=== PATIENT | male | born 1960 | race Caucasian/White ===

== ENCOUNTER 2019-10-03 05:23 | Inpatient (IN) ==
--- NOTE | 2019-09-18 08:37 | Anesthesiology Consultation ---
Date of Service September 18, 2019 Assessment & Plan (1) Encounter for pre-operative examination: PCP Clearance 09/19/19: "There are no contraindications to proceeding with L3-4 decompression and fusion with L4-5 hardware removal scheduled for October 02, 2019 other than the Covid 19 pandemic. According to [employer] guidelines patient would be considered to be at low risk... There was an abnormal chest x-ray showing a right lower lung nodule done with preanesthesia testing yesterday. However, CAT scan of chest done this morning shows that that was artifact. There is no lung nodule. There is no evidence of any metastatic disease from renal cell and bladder cancer." Chart Review Chart Review: Acceptable Risk for Surgery and Patient seen in Pre Admission Testing Teaching & Discussion Instructed NPO after midnight before surgery, except medications with 15 cc of water. Medication instructions provided according to the PAT guidelines. History Surgery Operation Date: 10/02/19 12:00 Proposed Procedures p L3-L4 Decompression and Fusion, L4-L5 Hardware Removal, Spinal Cord Monitoring - Latrell Sainz DO Height/Weight Height: 5 ft 6 in Weight: 98.5 kg Allergies Allergy/AdvReac Type Severity Reaction Status Date / Time cyclobenzaprine Allergy Unknown PT NOT SURE Verified 09/19/19 12:57 pravastatin [From Pravachol] AdvReac Unknown MUSCLE Verified 09/19/19 12:57 SORENESS NASAL SPRAY Allergy Unknown Rash Uncoded 09/19/19 12:57 Medications Home Medications Medication Instructions Recorded Confirmed Last Taken multivitamin 1 tab PO DAILY #30 tab 12/23/18 09/19/19 Unknown amlodipine 10 mg PO QAM 09/08/19 09/19/19 Unknown metoprolol succinate 25 mg PO QAM 09/08/19 09/19/19 Unknown Past Medical History Medical History Chronic back pain Elevated hemoglobin A1c 6.5% 06/2019 -- PCP monitoring. Lifestyle modifications for now. History of bladder cancer DX OCTOBER 2018, s/p TURBT 12/17/18 History of kidney cancer DX OCTOBER 2018, s/p partial nephrectomy. Hypertension Scar tissue URETHRA Exercise / Class Metabolic Activity II 4-5 Yardwork/Stairs/Walk up hill Past Family History Family History Mother Brain tumor Brother Skin cancer Past Surgical History Surgical History History of colonoscopy History of cystoscopy MULTIPLE History of kidney surgery R, REMOVAL OF TUMOR - KIDNEY REMAINS History of lumbar fusion History of repair of left rotator cuff History of repair of right rotator cuff History of tonsillectomy and adenoidectomy Hx of transurethral destruction of bladder lesion 12/17/18 TURBT Past Anesthesia History No Hx of Anesthesia Complications and No Family Hx of Anesthesia Complications History of PONV No Hx of PONV and No Hx of Motion Sickness Social History Smoking Status: Never smoker tobacco type: smokeless tobacco Do You Dip or Chew Tobacco: No (HX OF 20+ YRS AGO, NONE CURRENT) Hx Alcohol Use: Yes Alcohol type: beer and wine alcohol intake frequency: other Alcohol Intake Frequency Comment: RARE Hx Substance Use: No substance use type: does not use Review of Systems Pt denies any recent chest pain, shortness of breath, palpitations, cough, fever or URI. Physical Exam Vital Signs BP: 138/90 P: 85bpm SPO2: 98% RA T: 97.9 F R: 16 ENMT Mouth: + dental restorations (Left upper molar implant/crown); no chipped teeth and no loose teeth Thyromental Distance: > or= 3.5 Finger Breadths (3.5) Mallampati Class: I Neck normal visual inspection; neck extension not limited Respiratory normal respiratory effort Auscultation: lungs clear to auscultation bilaterally Cardiovascular Rate/Rhythm: regular rate and regular rhythm Heart Sounds: no murmur Extremities: no edema Testing Laboratory Results 09/18/19 09:16 09/18/19 09:16 PT 10.6 Seconds (9.0-12.0) 09/18/19 09:16 INR 1.0 (0.9-1.1) 09/18/19 09:16 APTT 29.2 Seconds (21.0-31.0) 09/18/19 09:16 Urine Color Yellow 09/18/19 09:16 Urine Appearance Clear (Clear) 09/18/19 09:16 Urine pH 7.5 (4.5-7.5) 09/18/19 09:16 Ur Specific [place] 1.014 (1.000-1.030) 09/18/19 09:16 Urine Protein Negative (Negative) 09/18/19 09:16 Urine Glucose (UA) Negative (Negative) 09/18/19 09:16 Urine Ketones Negative (Negative) 09/18/19 09:16 Urine Nitrite Negative (Negative) 09/18/19 09:16 Ur Leukocyte Esterase Negative (Negative) 09/18/19 09:16 Blood Type O Positive 09/18/19 09:16 Antibody Screen NEGATIVE 09/18/19 09:16 Electrocardiogram Date: 09/18/19 Findings: + NSR @ (84bpm) No significant change from 2011 EKG. Chest X-Ray Date: 09/18/19 IMPRESSION: 1. Apparent 14 mm right lower lung nodule. Further evaluation with chest CT recommended. 2. No acute cardiopulmonary disease. Other Testing Chest CT 09/19/19 1. There is no airspace consolidation or pleural effusion. 2. No pulmonary nodule is identified. The nodular density questioned by x-ray was likely artifactual.
--- NOTE | 2019-09-18 08:50 | PAT Medication Instructions ---
Medication Instructions Date of Service September 18, 2019 Home Medications Medication Instructions Recorded multivitamin 1 tab PO DAILY #30 tab 12/23/18 multivitamin 1 tab PO DAILY amlodipine 10 mg PO QAM metoprolol succinate 25 mg PO QAM DO NOT take the morning of surgery multivitamin 1 tab PO DAILY Take morning of surgery With a small sip of water, OTHERWISE NOTHING TO EAT OR DRINK AFTER MIDNIGHT: amlodipine 10 mg PO QAM metoprolol succinate 25 mg PO QAM Other Notes If you have any questions please call us at [phone] or [phone] or [phone] or [phone]
--- NOTE | 2019-09-18 09:48 | XRay Report ---
XR chest Pre-admission PA/Lat CLINICAL HISTORY: 59 years-old Male presenting with preoperative evaluation. TECHNIQUE: Portable upright AP view of the chest was obtained. COMPARISON: 02/12/2007. FINDINGS: Cardiomediastinal silhouette normal. Apparent 14 mm nodule in the right paramediastinal lower lung, w hich may be in the anteromedial right lower lobe. No other focal opacity. No pleural effusion or pneu mothorax. Osseous structures normal. Upper abdomen normal. IMPRESSION: 1. Apparent 14 mm right lower lung nodule. Further evaluation with chest CT recommended. 2. No acute cardiopulmonary disease. The report will be called/faxed according to standard departmental protocol. ACT 112: Positive. There are findings on this exam that require communication between the performing entity and the patient following Patient Test Result Information Act ([place] Act 112) guidelines. Electronically signed by: David Guillaume M.D. 09/18/2019 9:47 AM
[2019-09-18 09:50] LABS: Basophils # (auto) 0.06 K/uL (0-0.2); Basophils % (auto) 0.6 %; Eosinophils # (auto) 0.32 K/uL (0-0.5); Hematocrit (blood only) 47.7 % (42-52); Hemoglobin 16.8 g/dL (14.0-18.0); Immature Granulocytes # (auto) 0.05 K/uL (0.00-0.02); Immature Granulocytes % (auto) 0.5 %; Lymphocytes # (auto) 2.61 K/uL (1.2-3.4); Lymphocytes % (auto) 24.7 %; Mean Corpuscular Hemoglobin 31.6 pg (25-34); Mean Corpuscular Hgb Conc 35.2 g/dL (32-36); Mean Corpuscular Volume 89.8 fL (80-100); Mean Platelet Volume 10.3 fL (7.4-10.4); Monocytes # (auto) 0.88 K/uL (0.11-0.59); Monocytes % (auto) 8.3 %; Neutrophils # (auto) 6.66 K/uL (1.4-6.5); Neutrophils % (auto) 62.9 %; Platelet Count 269 K/uL (130-400); RDW Coefficient of Variation 12.6 % (11.5-14.5); RDW Standard Deviation 41.1 fL (36.4-46.3); Red Blood Count 5.31 M/uL (4.7-6.1); White Blood Count 10.58 K/uL (4.8-10.8)
[2019-09-18 09:57] LABS: BUN Creatinine Ratio 11.3 (10-20); Creatinine Clr Calc Pharmacy 72.2 ml/min; Est GFR (Non-African American) 66.5; Potassium 4.5 mmol/L (3.5-5.1)
[2019-09-18 09:58] LABS: Appearance Urine Clear (Clear); Bilirubin Urine Negative (Negative); Blood Urine Negative (Negative); Color Urine Yellow; Glucose Urine UA Negative (Negative); Ketones Urine Negative (Negative); Leukocyte Esterase Urine Negative (Negative); Nitrite Urine Negative (Negative); Protein Urine Negative (Negative); Specific Gravity Urine 1.014 (1.000-1.030); Urobilinogen Urine Negative (Negative); pH Urine 7.5 (4.5-7.5)
[2019-09-18 10:03] LABS: Partial Thromboplastin Time 29.2 Seconds (21.0-31.0); Prothrombin Time 10.6 Seconds (9.0-12.0)
--- NOTE | 2019-09-18 15:46 | Electrocardiogram Report ---
Test Reason : Blood Pressure : / mmHG Vent. Rate : 084 BPM Atrial Rate : 084 BPM P-R Int : 144 ms QRS Dur : 088 ms QT Int : 352 ms P-R-T Axes : 069 058 015 degrees QTc Int : 415 ms Normal sinus rhythm Normal ECG When compared with ECG of 07-OCT-2010 15:36, No significant change was found Confirmed by En Carcamo ([id number]) on 09/18/2019 3:46:34 PM Referred By: Latrell Sainz Confirmed By:Oniel Carcamo
--- NOTE | 2019-10-01 14:29 | History & Physical Report ---
Date of Service October 01, 2019 Assessment & Plan (1) Lumbar disc herniation with radiculopathy: At this time the patient has severe neural compression specifically involving the left L3 nerve root. This is obviously accounting for his quadricep weakness and pain patterns. In light of his progressive neurologic deficit and risk for long-term weakness and sequela I related to his spinal pathology I am recommending urgent decompression and fusion at L3-L4. It would require removal of instrumentation at L4-L5. Risk benefits pros cons and alternatives were outlined in detail. Present on Admission?: Yes History of Present Illness Chief Complaint: Back and bilateral leg pain left greater than right. Primary Care Provider: Carlos Hendrickson MD This is a 59-year-old male presents with marked decline in status over the past several weeks with severe pain radiating predominantly in the left buttock and into the anterior thigh. He has limited ambulation secondary to significant weakness involving left lower extremity. He is unable to sleep. He notes his symptoms be progressive. Allergies Allergy/AdvReac Type Severity Reaction Status Date / Time cyclobenzaprine Allergy Unknown PT NOT SURE Verified 09/19/19 12:57 pravastatin [From Pravachol] AdvReac Unknown MUSCLE Verified 09/19/19 12:57 SORENESS NASAL SPRAY Allergy Unknown Rash Uncoded 09/19/19 12:57 Home Medications Home Medications Medication Instructions Recorded Confirmed Type multivitamin 1 tab PO DAILY #30 tab 12/23/18 09/19/19 Rx amlodipine 10 mg PO QAM 09/08/19 09/19/19 History metoprolol succinate 25 mg PO QAM 09/08/19 09/19/19 History Past Med/Surg History Medical History Chronic back pain Elevated hemoglobin A1c 6.5% 06/2019 -- PCP monitoring. Lifestyle modifications for now. History of bladder cancer DX OCTOBER 2018, s/p TURBT 12/17/18 History of kidney cancer DX OCTOBER 2018, s/p partial nephrectomy. Hypertension Scar tissue URETHRA Surgical History History of colonoscopy History of cystoscopy MULTIPLE History of kidney surgery R, REMOVAL OF TUMOR - KIDNEY REMAINS History of lumbar fusion History of repair of left rotator cuff History of repair of right rotator cuff History of tonsillectomy and adenoidectomy Hx of transurethral destruction of bladder lesion 12/17/18 TURBT Family History Mother Brain tumor Brother Skin cancer Social History (Updated 08/07/19 @ 07:47 by Malu Wahl MA) Preferred Language: Somali Communication Ability: Effective Visual Impairment: No Limitations Hearing Ability: Normal Micromatic Hone Operator Required: No Beliefs That Will Affect Care: None marital status: Current Living Situation: Spouse current occupational status: employed 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 Other Information That Helps Us Care for You: No Feels Safe at Home: Yes Smoking Status: Never smoker Tobacco Type: smokeless tobacco ; Do You Dip or Chew Tobacco: No (HX OF 20+ YRS AGO, NONE CURRENT) ; Second Hand Exposure: No ; Hx Alcohol Use: Yes Alcohol type: beer and wine Alcohol Intake Frequency: Rarely Hx Substance Use: No Childhood Exposure to Second-Hand Smoke: Yes Dental Care, Regularly: Yes Physical Activity Frequency: Does not Exercise Physical Activity Frequency Comment: unable to due to health conditions Seatbelt Use: always Physical Exam Physical Exam: On exam the patient is in obvious distress. He can stand ambulate for short distance with assistance. Bench exam reveals reasonable plus out of 5 strength the right quadriceps right dorsiflexion plantarflexion on the left he has a 3+/4 quadricep 5/5 plantar flexion dorsiflexion. There is significant dense sensory deficits to the left thigh compared to the right. Heart is regular rate and rhythm Lungs clear to auscultation Results & Data Diagnostic Findings MRI lumbar spine of the lumbar spine demonstrates evidence of previous instrumented fusion L4-L5. There is degenerative changes L2-3. L3-4 demonstrates broad-based disc herniation with severe bilateral neuroforaminal disease left worse than right. Axillary views demonstrate evidence of severe subarticular and neuroforaminal stenosis at L3-4. He is well decompressed at L4-5. L5-S1 is benign. There is evidence of a far lateral disc herniation occupying the foramen at L3-4 on the left.
[2019-10-03] MEDS ORDERED: CEFAZOLIN 2000MG 2,000 MG/15 ML SYR IV SCH (06:00)
[2019-10-03] MEDS ORDERED: ACETAMINOPHEN 500 MG TAB PO SCH (06:00)
[2019-10-03] MEDS ORDERED: LR 15ML/HR IV SCH (06:00)
[2019-10-03] MEDS ORDERED: GABAPENTIN 600 MG DOSE PO SCH (06:00)
[2019-10-03] MEDS: CeleBREX 200 MG CAP PO SCH (06:02)
[2019-10-03] MEDS ORDERED: HYDROmorphone INJ 1 MG/ML SYRINGE IV PRN ×2 (06:36→11:21)
[2019-10-03] MEDS ORDERED: ONDANSETRON INJ 2 MG/ML 2 ML VIAL IV PRN ×2 (06:36→11:21)
[2019-10-03] MEDS ORDERED: ePHEDrine sulfate 50 MG/ML AMP IV PRN (06:36)
[2019-10-03] MEDS ORDERED: fentaNYL citrate 100 MCG/2 ML VIAL IV PRN (06:36)
[2019-10-03] MEDS ORDERED: ATROPINE SULFATE 0.1 MG/ML 10ML SYR IV PRN (06:36)
[2019-10-03] MEDS ORDERED: DEXAMETHASONE SOD INJ 4 MG/ML VIAL ONE ×2 (06:49→09:31)
[2019-10-03] MEDS ORDERED: NEOSTIGMINE METHYLSULFATE 5 MG/5 ML SYR ONE (06:49)
[2019-10-03] MEDS ORDERED: ONDANSETRON INJ 2 MG/ML 2 ML VIAL ONE ×2 (06:49→09:31)
[2019-10-03] MEDS ORDERED: LIDOCAINE HCL 2% 2 ML VIAL/AMP(20MG/ML) INFIL ONE (06:49)
[2019-10-03] MEDS ORDERED: GLYCOPYRROLATE 0.2 MG/ML VIAL ONE ×2 (06:49→09:31)
[2019-10-03] MEDS ORDERED: PROPOFOL IV EMULSION 10 MG/ML 20 ML VIAL IV ONE (06:49)
[2019-10-03] MEDS ORDERED: fentaNYL citrate 100 MCG/2 ML VIAL ONE (06:49)
[2019-10-03] MEDS ORDERED: MIDAZOLAM HCL 1 MG/ML 2ML VIAL ONE (06:49)
[2019-10-03] MEDS ORDERED: HYDROmorphone INJ 2 MG/ML SYR/VIAL ONE (06:50)
[2019-10-03] MEDS ORDERED: SODIUM CHLORIDE 0.9% INJ 10 ML VIAL ONE (06:50)
[2019-10-03] MEDS ORDERED: SUCCINYLCHOLINE CHLORIDE 20 MG/ML 10 ML VIAL ONE (06:50)
[2019-10-03] MEDS ORDERED: ROCURONIUM BROMIDE 10 MG/ML 5 ML VIAL ONE (06:50)
[2019-10-03] MEDS ORDERED: LIDOCAINE 2% JELLY 5 ML TUBE ONE (06:55)
[2019-10-03] MEDS ORDERED: DexMEDEtomidine HCL IV 100 MCG/ML VIAL ONE (06:55)
[2019-10-03] MEDS ORDERED: ALBUMIN HUMAN 5% 12.5 GM/250 ML VIAL IV ONE (06:55)
[2019-10-03] MEDS ORDERED: BUPIVACAINE/EPINEPHRINE 0.5% MPF 1:200,000 10 ML VIAL ONE (07:00)
[2019-10-03] MEDS ORDERED: BACITRACIN INJ 50,000 UNIT VIAL ONE (07:00)
--- NOTE | 2019-10-03 07:10 | History & Physical Bridge Note ---
Date of Service October 03, 2019 History & Physical Bridge Note I have examined the patient, reviewed the History & Physical and in the interval since the performance of the History & Physical I have noted the following changes of clinical significance: no changes noted
[2019-10-03] MEDS ORDERED: FLOSEAL HEMOSTATIC MATRIX 10ML TOP ONE (08:57)
[2019-10-03] MEDS ORDERED: PHENYLEPHRINE 100MCG/ML 5ML SYR ONE (08:57)
[2019-10-03] MEDS ORDERED: ePHEDrine sulfate 50 MG/ML SYR ONE (08:57)
[2019-10-03] MEDS ORDERED: PHENYLEPHRINE HCL 10 MG/ML VIAL ONE (09:31)
--- NOTE | 2019-10-03 09:59 | Operative Report ---
Post Operative Report Pre & Post Diagnosis Operation Date: 10/03/19 07:15 Pre-Op Diagnosis: Lumbar Disc Herniation and Radiculopathy L3-L4, Previous Fusion L4-L5 Post-Op Diagnosis: Lumbar Disc Herniation and Radiculopathy L3-L4, Previous Fusion L4-L5 I identified the patient and participated in the time-out.: Yes Procedure Operation Date: 10/03/19 07:15 Actual Procedures #1 removal of instrumentation L4-5. #2 exploration of fusion L4-5. #3 lumbar decompression with bilateral medial facetectomies and foraminotomies L2-3, L3-4. #4 posterior spinal fusion L3-4. #5 placement posterior instrumentation L3-4. #6 interbody fusion L3-4. #7 placement peek cage 12 x 26 mm at L3-4. #8 placement locally harvested morselized autograft in the posterior lateral gutters. Benign placement infuse collagen sponge, master graft in the posterior lateral gutters and ostial amp and interbody space. Surgeon Latrell Sainz, DO Carver Hand None Estimated Blood Loss 50 Findings See Below Patient is 5 foot 6 inches tall weighing over 96 kg with a BMI in excess of 34. The patient's body habitus did add significant increased technical difficulty throughout the procedure. This did add at least 40% increase to the operative time. Specimens None Indications Patient presents with severe pain and weakness affecting the left lower extremity. As he was progressing rapidly we recommended urgent decompression fusion. Description of Procedure Patient was met with identified informed consent obtained. Patient was then taken to the operative suite underwent an patient placed in prone position the Jono table on top Wilfrid frame. All bony prominences well-padded eyes inspected to ensure no external pressure placed upon the. This point the lumbar spine was prepped and draped in normal sterile fashion. Sharp dissection with the assistance of Bovie cautery was performed down to and exposing the lamina and transverse processes of L3 and instrumentation at L4 and L5 bilaterally. Then proceeded move the hardware bilaterally unable to remove the left L5 pedicle screw as it was stripped and completely buried in bone. The bone graft was explored noticed to be mature and intact. And then performed a complete laminectomy of L3 partial laminectomy of L2 including bilateral medial facetectomies and foraminotomies. Identified massive disc herniation occupying the entire foramen of 3 4 on the left. It was removed in its entirety removing all compression of the exiting L3 nerve root. Pedicle screws were then placed in L3 and L4 bilaterally with assistance of fluoroscopy the proper sized dipesh placed. The way of a transforaminal portion left the discectomy was performed endplates curetted to subcortical being bone and a 12 x 22 mm peek cage filled osteo-bone graft tapped in position. The rods were then locked in final position bilaterally. The transverse processes of L3 and L4 were burred to subcortical bleeding bone. Infuse collagen sponge master graft local autograft placed in the posterior gutters. 15 round CRISTAL drain inserted. The incision was then closed with 1 Vicryl in the fascia 2-0 Vicryl subcutaneously and 4 Monocryl for final skin closure. Steri-Strips dressings placed. Patient will continue to PACU stable disc. Please note spinal cord monitoring was utilized that the procedure no changes noted. I attest to the content of the Intraoperative Record and any orders documented therein. Any exceptions are noted below.
--- NOTE | 2019-10-03 10:01 | Fluoroscopy Report ---
FL lumbar spine 2-3V CLINICAL HISTORY: L3-L4 DECOMPRESSION AND FUSION COMPARISON STUDY: 2010 FLUOROSCOPY TIME: 7 seconds. NUMBER OF FLUOROSCOPIC IMAGES: 2 FINDINGS: 2 intraoperative fluoroscopic spot images are provided for interpretation. Again evident ar e postsurgical changes of a discectomy and interbody fusion at the L4-5 level. The right L5 pedicle s crew has been removed in the interim. The L4-5 spinal rods have been removed. There is now evidence for an L3-4 discectomy, interbody fusion, and posterior spinal fusion with pedi dafne screw and dipesh fixation. IMPRESSION: Intraoperative fluoroscopic spot images demonstrating postsurgical changes as described above. ACT 112: Negative or not required by law. Electronically signed by: Mart Can M.D. 10/03/2019 10:00 AM
--- NOTE | 2019-10-03 10:53 | Anesthesiology Progress Note ---
Date of Service October 03, 2019 Anesthesia Post Procedure Vital Signs Vital Signs: Temp Pulse Pulse Resp BP Pulse Ox 10/03/19 10:50 86 16 133/69 99 10/03/19 10:40 100 H 16 141/74 H 99 10/03/19 10:30 112 H 16 138/80 99 10/03/19 10:22 36.4 C L 93 H 16 139/86 94 10/03/19 05:48 36.8 C 88 18 176/86 H 98 Transfer of Care Handoff Completed per policy Notes Mental Status: alert / awake / arousable and participated in evaluation Patient Amnestic to Procedure: Yes Nausea / Vomiting: adequately controlled Pain: adequately controlled Airway Patency, RR, SpO2: stable & adequate BP & HR: stable & adequate Hydration State: stable & adequate Anesthetic Complications: no major complications apparent and Pt Satisfied with anesthetic care
[2019-10-03] MEDS ORDERED: METOCLOPRAMIDE HCL INJ 5 MG/ML 2 ML VIAL IV PRN (11:21)
[2019-10-03] MEDS ORDERED: DO NOT ADMINISTER FLU VACCINE PRN (11:21)
[2019-10-03] MEDS ORDERED: MAGNESIUM HYDROXIDE SUSP 30 ML UDC PO PRN (11:21)
[2019-10-03] MEDS ORDERED: LORazepam 0.5 MG TAB PO PRN (11:21)
[2019-10-03] MEDS ORDERED: ACETAMINOPHEN 500 MG TAB PO PRN (11:21)
[2019-10-03] MEDS ORDERED: SOD PHOSPHATE/SOD BIPHOSPHATE ENEMA 132 ML BTL PR PRN (11:21)
[2019-10-03] MEDS ORDERED: FAMOTIDINE 20 MG TAB PO PRN (11:21)
[2019-10-03] MEDS ORDERED: OXYCODONE HCL IR 5 MG TAB (IMMEDIATE RELEASE) PO PRN (11:21)
[2019-10-03] MEDS ORDERED: LORazepam 0.5 MG/1 ML VIAL IV PRN (11:21)
[2019-10-03] MEDS ORDERED: ONDANSETRON 4 MG OD TAB PO PRN (11:21)
[2019-10-03] MEDS ORDERED: ALUMINUM/MAGNESIUM SUSP 30 ML UDC PO PRN (11:21)
[2019-10-03] MEDS ORDERED: DO NOT ADMINISTER PNEUMOCOCCAL VACCINE PRN (11:21)
[2019-10-03] MEDS ORDERED: HYDROmorphone INJ 0.5 MG/0.5 ML SYR IV PRN (11:21)
[2019-10-03] MEDS ORDERED: TRAMADOL HCL 50 MG TABLET PO PRN (11:21)
[2019-10-03] MEDS ORDERED: PROMETHAZINE HCL 12.5 MG in SODIUM CHLORIDE 0.9% 50 ML IV PRN (11:21)
[2019-10-03] MEDS ORDERED: NALOXONE HCL 0.4 MG/1 ML VIAL/CARP IV PRN (11:21)
[2019-10-03] MEDS ORDERED: ACETAMINOPHEN 1,000 MG/100 ML VIAL IV PRN (11:21)
[2019-10-03] MEDS ORDERED: bisacodyL 10 MG SUPP PR PRN (11:21)
[2019-10-03] MEDS: LACTATED RINGER'S 1,000 ML IV SCH ×2 (11:46→16:08)
[2019-10-03] MEDS: KETOROLAC 30 MG/ML VIAL IV SCH ×3 (12:15→23:49)
[2019-10-03] MEDS: CEFAZOLIN 2000MG 2,000 MG/15 ML SYR IV SCH ×2 (14:02→22:50)
[2019-10-03] MEDS: DOCUSATE SODIUM/SENNA 50/8.6MG TAB PO SCH (20:35)
[2019-10-03] MEDS ORDERED: COUGH DROP (SUGAR FREE) LOZ 24 LOZ/1 BOX BUCCAL ONE (23:52)
[2019-10-04] MEDS: LACTATED RINGER'S 1,000 ML IV SCH (01:12)
[2019-10-04 05:09] LABS: Basophils # (auto) 0.01 K/uL (0-0.2); Basophils % (auto) 0.1 %; Hematocrit (blood only) 39.7 % (42-52); Hemoglobin 13.8 g/dL (14.0-18.0); Immature Granulocytes # (auto) 0.06 K/uL (0.00-0.02); Immature Granulocytes % (auto) 0.3 %; Lymphocytes # (auto) 1.24 K/uL (1.2-3.4); Lymphocytes % (auto) 7.2 %; Mean Corpuscular Hemoglobin 31.3 pg (25-34); Mean Corpuscular Hgb Conc 34.8 g/dL (32-36); Mean Platelet Volume 9.9 fL (7.4-10.4); Monocytes # (auto) 1.16 K/uL (0.11-0.59); Monocytes % (auto) 6.8 %; Neutrophils # (auto) 14.69 K/uL (1.4-6.5); Neutrophils % (auto) 85.6 %; Platelet Count 253 K/uL (130-400); RDW Coefficient of Variation 12.7 % (11.5-14.5); RDW Standard Deviation 41.9 fL (36.4-46.3); Red Blood Count 4.41 M/uL (4.7-6.1); White Blood Count 17.16 K/uL (4.8-10.8)
[2019-10-04] MEDS: CeleBREX 200 MG CAP PO SCH (05:16)
[2019-10-04] MEDS: POLYETHYLENE (MIRALAX) 17 GM PACK PO SCH ×4 (05:17→23:22)
[2019-10-04] MEDS: KETOROLAC 30 MG/ML VIAL IV SCH (05:31)
[2019-10-04 05:34] LABS: BUN Creatinine Ratio 13.4 (10-20); Calcium 9.2 mg/dl (8.5-10.1); Creatinine Clr Calc Pharmacy 74.6 ml/min; Est GFR (African American) 79.4; Est GFR (Non-African American) 68.5; Potassium 4.2 mmol/L (3.5-5.1)
[2019-10-04] MEDS: MULTIVITAMIN TAB PO SCH (08:16)
[2019-10-04] MEDS: AMLODIPINE BESYLATE 5 MG TAB PO SCH (08:16)
[2019-10-04] MEDS: METOPROLOL SUCC 25MG EXT REL TAB PO SCH (08:16)
--- NOTE | 2019-10-04 10:28 | Orthopedic Progress Note ---
Date of Service October 04, 2019 Assessment & Plan (1) Lumbar disc herniation with radiculopathy: This time we will continue physical therapy monitor his CRISTAL output hopefully discharge home tomorrow. Present on Admission?: Yes Admission and Anticipated Discharge Date Admission Date: October 03, 2019 Subjective Back pain controlled left leg pain markedly improved. He states his strength and numbness is remarkably improved. Physical Exam Physical Exam: On exam is excellent strength testing appears comfortable. Results & Data ([facility]) Vital Signs (Past 12 Hours) Vital Signs Temp Pulse Resp BP Pulse Ox 10/04/19 07:37 36.6 C 78 16 152/77 H 96 10/04/19 03:21 36.4 C L 89 16 134/77 97 10/03/19 23:10 36.4 C L 79 16 127/65 97
[2019-10-04] MEDS: DOCUSATE SODIUM/SENNA 50/8.6MG TAB PO SCH (20:50)
[2019-10-05] MEDS: POLYETHYLENE (MIRALAX) 17 GM PACK PO SCH (06:36)
[2019-10-05] MEDS: METOPROLOL SUCC 25MG EXT REL TAB PO SCH (08:25)
[2019-10-05] MEDS: MULTIVITAMIN TAB PO SCH (08:25)
[2019-10-05] MEDS: AMLODIPINE BESYLATE 5 MG TAB PO SCH (08:26)
[2019-10-05] MEDS ORDERED: DEXAMETHASONE SOD PHOSPHATE 8 MG in SYRINGE 0 ML IV SCH (09:00)
[2019-10-05] MEDS ORDERED: Nursing to Pharmacy Communication ONE (10:17)
--- NOTE | 2019-10-05 10:46 | Anesthesiology Progress Note ---
Date of Service October 05, 2019 Anesthesia Post Procedure Vital Signs Vital Signs: Temp Pulse Resp BP Pulse Ox 10/05/19 07:32 36.8 C 82 16 140/92 97 10/04/19 23:12 36.4 C L 58 L 16 129/79 98 10/04/19 15:23 36.6 C 87 18 160/77 H 96 Notes Mental Status: alert / awake / arousable and participated in evaluation Nausea / Vomiting: adequately controlled Pain: adequately controlled Airway Patency, RR, SpO2: stable & adequate BP & HR: stable & adequate Hydration State: stable & adequate
--- NOTE | 2019-10-05 11:45 | Discharge Summary ---
Date of Service October 05, 2019 Admission HPI Per Admitting Provider This is a 59-year-old male presents with marked decline in status over the past several weeks with severe pain radiating predominantly in the left buttock and into the anterior thigh. He has limited ambulation secondary to significant weakness involving left lower extremity. He is unable to sleep. He notes his symptoms be progressive. Principal Diagnosis Lumbar spinal stenosis with radiculopathy Discharge Data Allergies Allergy/AdvReac Type Severity Reaction Status Date / Time cyclobenzaprine Allergy Unknown PT NOT SURE Verified 10/03/19 05:44 apple Allergy Swelling Verified 10/03/19 05:45 of Lip/Tongue/Throat branch Allergy Swelling Verified 10/03/19 05:45 of the Eye plum Allergy Swelling Verified 10/03/19 05:46 of Lip/Tongue/Throat walnut Allergy Swelling Verified 10/03/19 05:45 of Lip/Tongue/Throat pravastatin [From Pravachol] AdvReac Unknown MUSCLE Verified 10/03/19 05:44 SORENESS NASAL SPRAY Allergy Unknown Rash Uncoded 10/03/19 05:44 Consultations 10/03/19 11:21 Consult Case Management - Discharge Planning Routine Procedures Performed Operation Date: 10/03/19 07:15 Actual Procedures p L3-L4 Decompression and Instrumented Fusion, with Application of Bone Morphogenetic Protein and Application of Osteoamp Allograft, Interbody Fusion; L4-L5 Hardware Removal, Spinal Cord Monitoring(Not Applicable) - Latrell Sainz DO Ordered Studies 10/03/19 07:00 FL fluoroscopy <1hr Routine FL lumbar spine 2-3V Routine Hospital Course (1) Lumbar disc herniation with radiculopathy: Patient went lumbar decompression fusion tolerated this well state of orthopedic for postoperative. Postop day 1 he had marked resolution of his leg pain and improvement of his leg weakness. He ambulated the halls well. He progressed to postop day #2. CRISTAL drain decreasing probably. Excellent strength testing. Subsequently discharged home. Discharge orders instructions from the chart for further review. Total Time Total Time Spent Total Time Spent (In Minutes): 20 minutes Discharge Plan Discharge Items Patient Disposition: Home - Self-Care Reason For Visit: Radiculopathy, Lumbar Region Discharge Diagnosis: Lumbar spinal stenosis with disc herniation and radiculopathy Activity: As commented below Non-emergency contact: Primary Care Provider Call non-emergency contact if: you have any medication questions Follow-up/Referrals: Hendrickson,Carlos, MD [Primary Care Provider] - Diet: Regular Addtl Attending Provider Instructions: ACTIVITY RECOMMENDATIONS: SELF CARE INSTRUCTIONS AFTER THORACIC/LUMBAR FUSIONS 1. You may walk to your tolerance. It is good exercise for your legs and back. Expect some back and intermittent leg aches and pains. 2. You may perform "counter-top" level activities (make a sandwich, tam with a project, etc.). 3. No bending or lifting of more than 10 pounds or back twisting of any nature (roll like a log when turning in bed). 4. You may ride in a car for 20-30 minutes at a time. No driving until after your first visit with your doctor. 5. Frequent changes of position and restricting sitting to 30 minutes at a time will help limit the amount of back spasms and stiffness you may experience. 6. You may discontinue the use of ambulatory aids (cane, crutches, etc.) once your strength and confidence allow. 7. You may xerox machine operator the shower and let water strike your incision when you arrive home at least once daily. Do not take a tub bath, sit in a hot tub or go into a swimming pool until after your first recheck in the office. SPECIAL CARE INSTRUCTIONS: VERY IMPORTANT TO READ AND REVIEW A. Your surgical incision has been closed with a cosmetic suture under the skin that will dissolve in about 6 weeks. In 14 days, you can use a pair of clean scissors and cut the suture that is left outside of the skin at the ends of your incision. 1. The small skin tapes can be removed 7 days after surgery if they have not fallen off by that point. 2. You may keep the wound open to air as much as possible to promote healing after post-op day number 5 unless told otherwise by your doctor. 3. If you think the wound looks like it is becoming infected (redness or worsening drainage) and/or you are experiencing fever, chill or worsening back pain and muscle spasms, contact the office so that we may evaluate you as soon as possible. B. Complications are uncommon, but please contact us if you have any signs or symptoms of: 1. wound infection (fever higher than 102.5 degrees F, redness, separation of wound, drainage, or increasing pain from the incision) 2. blood clots in legs (pain, swelling, redness and warmth in legs) 3. urinary tract infection (fever higher than 102.5 degrees F, burning upon urination or increased frequency of urination) 4. nerve problems (inability to walk on your toes or heels, numbness, loss of bowel or bladder control) 5. any other symptoms that concern you C. Please call the office at if you have any concerns or questions about your operation or recovery. D. No smoking! Smoking drastically decreases the chance of a solid fusion. E. Do not take any anti-inflammatory medications (Indocin, Advil, Motrin, Aspirin, Naprosyn, etc.) as these may inhibit the chance of a solid fusion. Tylenol is okay to take for pain. MANAGING PAIN AFTER SPINAL SURGERY 1. Narcotic medication is intended for short-term use and will be provided for surgical pain. Surgical pain usually lasts for a period of 4-6 weeks. Narcotic medication includes Percocet, Vicodin, Darvocet, Tylenol #3 or Lortab. 2. Longer-term pain is more appropriately treated with non-narcotic medication such as Tylenol ES. 3. Muscle spasm is not appropriately treated with narcotics. Muscle relaxers such as Soma, Flexeril or Skelaxin can be used along with Tylenol ES. 4. Remember that we all live with some "aches and pains". This is not unusual or uncommon after an injury or as we get older. a. Back pain is expected and may include muscle spasms for 4 to 6 weeks after surgery. The pain should gradually improve. If the pain worsens for no apparent reason, please contact the office. b. Intermittent leg pain may also be experienced and should not be concerned about unless it worsens for no apparent reason. If so, please contact the office. 5. We will provide appropriate medication within the normal guidelines of their prescribed use. We will also be very cautious and aware of potential abuse and extended duration of patients' medication needs. a. Pain medications are for your comfort and to assist with sleep and rest so that the tissue can heal. They are not provided in order to return to normal activity and should not be used through the day. To do so or worsening pain at night can result from ongoing tissue damage and development of tolerance to the prescribed medicine. 6. Please allow 2-3 days to process refills. Prescriptions will not be mailed but must be picked up at the office. FOLLOW UP VISIT: Keep your scheduled follow-up appointment. Any questions, please call the office at . Pending Studies at Discharge: No Stand-Alone Forms: [facility], Smoking Cessation Medications and DC Order Prescriptions: New tramadol 50 mg tablet 50 mg PO Q6H PRN (Reason: pain, moderate) Qty: 20 RF: 0 oxycodone 5 mg tablet 5 mg PO Q6H PRN (Reason: pain, severe) Qty: 20 RF: 0 Continued multivitamin [Daily Multi-Vitamin] tablet 1 tab PO DAILY Qty: 30 RF: 0 amlodipine 10 mg tablet 10 mg PO QAM RF: 0 metoprolol succinate 25 mg tablet extended release 24 hr 25 mg PO QAM RF: 0 Discharge Orders: Discharge Order (Routine); Ordered 10/05/19 Ordered By: Latrell Sainz Admission Data Admit Date/Time: 10/03/19 10:36 Attending Provider: Latrell Sainz Admit Provider: Latrell Sainz Primary Care Provider: Carlos Hendrickson
== END 2019-10-05 13:01 | disposition home or self-care (01) | DRG 455 ==
LOC: ASU 05:23 → 3E 10:36

== ENCOUNTER 2019-10-24 17:45 | Inpatient (IN) ==
--- NOTE | 2019-10-24 18:52 | Emergency Department Note ---
History of Present Illness General Chief complaint: Infection, Wound Stated complaint: infection, DrJacinta Refered Time Seen by Provider: 10/24/19 17:58 History of Present Illness Provider complaint: Postoperative complication. Onset (ago): day(s) 2 Location: back Radiation: back Associated symptoms: no fever/chills and no malaise 59-year-old male presents emergency department for postoperative complication. Patient states that he has been having purulent discharge coming from the wound that Dr. Sainz made status post operation on October 02. He states that he noticed there is purulent discharge coming from the wound since Sunday, 2 days ago. He states at first it was scant however yesterday it began having severe "pus" coming from the wound. He denies any fever, urinary continence, urinary retention, or numbness. He states he called Dr. Sainz's office who prescribed him Keflex yesterday. He stated the discharge was significantly more today than yesterday and when he called Dr. Sainz's office today they referred him to the emergency department. Home Medications Home Medications Medication Instructions Recorded Confirmed Type multivitamin 1 tab PO DAILY #30 tab 12/23/18 10/24/19 Rx amlodipine 10 mg PO QAM 09/08/19 10/24/19 History metoprolol succinate 25 mg PO QAM 09/08/19 10/24/19 History oxycodone 5 mg PO Q6H PRN #20 tab 10/04/19 10/24/19 Rx tramadol 50 mg PO Q6H PRN #20 tab 10/04/19 10/24/19 Rx Allergies Allergy/AdvReac Type Severity Reaction Status Date / Time cyclobenzaprine Allergy Unknown PT NOT SURE Verified 10/24/19 20:10 apple Allergy Swelling Verified 10/24/19 20:10 of Lip/Tongue/Throat branch Allergy Swelling Verified 10/24/19 20:10 of the Eye plum Allergy Swelling Verified 10/24/19 20:10 of Lip/Tongue/Throat walnut Allergy Swelling Verified 10/24/19 20:10 of Lip/Tongue/Throat pravastatin [From Pravachol] AdvReac Unknown MUSCLE Verified 10/24/19 20:10 SORENESS NASAL SPRAY Allergy Unknown Rash Uncoded 10/24/19 20:10 Past Med/Surg History Medical History Chronic back pain Elevated hemoglobin A1c 6.5% 06/2019 -- PCP monitoring. Lifestyle modifications for now. History of bladder cancer DX OCTOBER 2018, s/p TURBT 12/17/18 History of kidney cancer DX OCTOBER 2018, s/p partial nephrectomy. Hypertension Scar tissue URETHRA Surgical History History of colonoscopy History of cystoscopy MULTIPLE History of kidney surgery R, REMOVAL OF TUMOR - KIDNEY REMAINS History of lumbar fusion History of repair of left rotator cuff History of repair of right rotator cuff History of tonsillectomy and adenoidectomy Hx of transurethral destruction of bladder lesion 12/17/18 TURBT Family History Mother Brain tumor Brother Skin cancer Social History Preferred Language: Czech Communication Ability: Effective Visual Impairment: No Limitations Hearing Ability: Normal Sales Development Director Required: No Beliefs That Will Affect Care: None marital status: Current Living Situation: Spouse current occupational status: employed 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 Feels Safe at Home: Yes Smoking Status: Never smoker Tobacco Type: smokeless tobacco ; Second Hand Exposure: No ; Hx Alcohol Use: Yes Alcohol type: beer and wine Alcohol Intake Frequency: Rarely Hx Substance Use: No Childhood Exposure to Second-Hand Smoke: Yes Dental Care, Regularly: Yes Physical Activity Frequency: Does not Exercise Physical Activity Frequency Comment: unable to due to health conditions Seatbelt Use: always Review of Systems A total of 10 systems reviewed and were otherwise negative Physical Exam Vital Signs Vital Signs - 24 hr 10/24/19 17:48 10/24/19 21:00 Temperature 36.8 C Temperature Source Oral Pulse Rate 97 H Pulse Rate [Finger] 78 Pulse Rhythm Regular Pulse Strength Normal Respiratory Rate 19 Blood Pressure 161/87 H Blood Pressure [Right Arm] 155/90 H Blood Pressure Mean 111 Blood Pressure Mean [Right Arm] 111 Blood Pressure Position Sitting Pulse Oximetry 92 97 Oxygen Delivery Method Room Air Sepsis Recent Fever Within 48 Hours No Sepsis Action Taken by Nursing No Action Required Physical Exam GENERAL: He is oriented to person, place, and time. He appears well-developed and well-nourished. He does not appear distressed. HENT: Exam performed. - Head: Normocephalic and atraumatic. - Right Ear: External ear normal. No mastoid tenderness. - Left Ear: External ear normal. No mastoid tenderness. - Mouth/Throat: The oropharynx is clear and moist. No trismus in the jaw. No dental abscesses or uvula swelling. No oropharyngeal exudate or tonsillar abscesses. EYES: Conjunctivae and EOM are normal. Pupils are equal, round, and reactive to light. Right eye exhibits no discharge. Left eye exhibits no discharge. No scleral icterus. NECK: Normal range of motion. Neck supple. No JVD present. No spinous process tenderness present. No carotid bruit present. No rigidity. No tracheal deviation and normal range of motion present. No Brudzinski's sign and no Kernig's sign noted. CV: Normal rate, regular rhythm, normal heart sounds and intact distal pulses. There is no peripheral edema. Palpable radial pulses bue. PULM/CHEST: Effort normal and breath sounds normal. No respiratory distress. No stridor. He has no wheezes. He has no rales. - Chest Wall: He exhibits no tenderness. ABD: The abdomen is soft. Bowel sounds are normal. He has no distension. No mass is present. There is no tenderness. There is no rebound, no guarding, no Harris's sign and no tenderness at McBurney's point. Rovsig negative. MUSC/SKEL: Normal range of motion. There is no peripheral edema, tenderness or deformity. LYMPH: No cervical adenopathy. NEURO: He is alert and oriented to person, place, and time. He has normal strength. No cranial nerve deficit or sensory deficit. Coordination and gait normal. GCS eye subscore is 4. GCS verbal subscore is 5. GCS motor subscore is 6. Cerebellar tests wnl. SKIN: Postoperative wound over his lumbar spine. Mild surrounding erythema. Purulent discharge is able to be easily expressed. No fluctuance. Nikolsky negative. PSYCH: He has a normal mood and affect. Behavior is normal. Judgment and thought content normal. Course Course 1804: The patient was evaluated in room C9. A complete history and physical exam was performed. 2041: Vital signs stable. Labs show a leukocytosis of 10.92, ESR of 42 and CRP of 1.27. MRI was concerning for possible infectious osteomyelitis versus postsurgical changes. I discussed the patient's symptoms with his surgeon Dr. Sainz and read him the report of the MRI verbatim. Both Dr. Sainz and I agree that the patient should be admitted to the hospital and receive IV antibiotics. Dr. Sainz states he can evaluate the patient in the hospital tomorrow for need for further surgical procedure or antibiotic bead placement. Dr. Sainz is in agreement that the patient should be treated with IV antibiotics, he is in agreement that vancomycin is appropriate in this patient's clinical setting. Dr. Sainz asked the patient to be admitted to the hospital service. [facility] hospitalist Dr. Montague made aware of the patient. Administered Medications Gadobutrol (Gadavist 30ml) 9.5 ml IV ONCE PRN PRN Reason: Interaction Checking Stop: 10/28/19 19:52 Last Admin: 10/24/19 19:53 Dose: 9.5 ml Documented by: [id number] Vancomycin HCl 2,000 mg/ (Sodium Chloride) 540 mls @ 200 mls/hr IV NOW ONE Stop: 10/24/19 23:18 Last Admin: 10/24/19 21:01 Dose: 200 mls/hr Documented by: [id number] Medical Decision Making Laboratory Data Result diagrams: 10/24/19 18:45 10/24/19 18:45 Lab Results 10/24/19 10/24/19 10/24/19 Range/Units 18:45 18:45 18:45 WBC 10.92 H (4.8-10.8) K/uL RBC 4.17 L (4.7-6.1) M/uL Hgb 13.2 L (14.0-18.0) g/dL Hct 37.6 L (42-52) % MCV 90.2 (80-100) fL MCH 31.7 (25-34) pg MCHC 35.1 (32-36) g/dL RDW Std Deviation 41.3 (36.4-46.3) fL RDW Coeff of Kalin 12.8 (11.5-14.5) % Plt Count 341 (130-400) K/uL MPV 9.5 (7.4-10.4) fL Immature Gran % (Auto) 0.5 % Neut % (Auto) 61.2 % Lymph % (Auto) 25.1 % [place] % (Auto) 7.9 % Eos % (Auto) 4.5 % Baso % (Auto) 0.8 % Immature Gran # (Auto) 0.05 H (0.00-0.02) K/uL Neut # (Auto) 6.69 H (1.4-6.5) K/uL Lymph # (Auto) 2.74 (1.2-3.4) K/uL [place] # (Auto) 0.86 H (0.11-0.59) K/uL Eos # (Auto) 0.49 (0-0.5) K/uL Baso # (Auto) 0.09 (0-0.2) K/uL ESR 42 H (0-14) mm/hr Sodium 135 L (136-145) mmol/L Potassium (3.5-5.1) mmol/L Chloride 104 (98-107) mmol/L Carbon Dioxide 24 (21-32) mmol/L Anion Gap 6.0 (3-11) BUN 14 (7-18) mg/dl Creatinine 1.08 (0.6-1.4) mg/dl Est Cr Clr Drug Dosing 80.5 ml/min Est GFR ( Amer) 86.6 Est GFR (Non-Af Amer) 74.7 BUN/Creatinine Ratio 12.5 (10-20) Glucose 94 (70-99) mg/dl Lactate (0.4-2.0) mmol/L Calcium 8.9 (8.5-10.1) mg/dl C-Reactive Protein 1.27 H (0-0.29) mg/dl 10/24/19 Range/Units 18:45 WBC (4.8-10.8) K/uL RBC (4.7-6.1) M/uL Hgb (14.0-18.0) g/dL Hct (42-52) % MCV (80-100) fL MCH (25-34) pg MCHC (32-36) g/dL RDW Std Deviation (36.4-46.3) fL RDW Coeff of Kalin (11.5-14.5) % Plt Count (130-400) K/uL MPV (7.4-10.4) fL Immature Gran % (Auto) % Neut % (Auto) % Lymph % (Auto) % [place] % (Auto) % Eos % (Auto) % Baso % (Auto) % Immature Gran # (Auto) (0.00-0.02) K/uL Neut # (Auto) (1.4-6.5) K/uL Lymph # (Auto) (1.2-3.4) K/uL [place] # (Auto) (0.11-0.59) K/uL Eos # (Auto) (0-0.5) K/uL Baso # (Auto) (0-0.2) K/uL ESR (0-14) mm/hr Sodium (136-145) mmol/L Potassium (3.5-5.1) mmol/L Chloride (98-107) mmol/L Carbon Dioxide (21-32) mmol/L Anion Gap (3-11) BUN (7-18) mg/dl Creatinine (0.6-1.4) mg/dl Est Cr Clr Drug Dosing ml/min Est GFR ( Amer) Est GFR (Non-Af Amer) BUN/Creatinine Ratio (10-20) Glucose (70-99) mg/dl Lactate 0.9 (0.4-2.0) mmol/L Calcium (8.5-10.1) mg/dl C-Reactive Protein (0-0.29) mg/dl Imaging Data Radiologist's Impression: MRI OF THE LUMBAR SPINE WITH AND WITHOUT CONTRAST CLINICAL HISTORY: Evaluate for postoperative abscess. COMPARISON STUDY: Lumbar spine fluoroscopic images October 03, 2019. TECHNIQUE: Utilizing a 1.5 Amberly magnet and dedicated coil, multiplanar, multiecho imaging of the lumbar spine was performed before and after uneventful IV administration of 9.5 mL of Gadavist. FINDINGS: For purposes of numbering on this exam, the L5-S1 disc space is assigned to axial image 28 of 30. A previous L4-L5 discectomy is noted. A left L5 pedicle screw remains in place. A recent L3-L4 discectomy, posterior decompression and bilateral pedicle screw fusion is noted. There is increased T2 signal and decreased T1 signal along the inferior endplate of L3 and superior endplate of L4. Interbody spacer is present. Note is made of a rim-enhancing left laminectomy bed fluid collection that extends into the left aspect of the canal and toward the interbody spacer at the L3-L4 level that measures 2.9 x 1.9 x 1.4 cm. This has mild mass effect upon the left posterolateral aspect of the thecal sac. An additional fluid collection within the deep subcutaneous tissues within the operative bed measures 4.9 x 1.3 x 1.2 cm. This also demonstrates peripheral enhancement. Note is made of edema and enhancement within the paraspinal musculature within the operative bed. The conus terminates at the L1 level. Several mildly enhancing nerve roots are noted within the lumbar spine. No additional fluid collections are noted. There are several Schmorl's nodes within the lower thoracic and lumbar spine. No lumbar spine fracture is present. IMPRESSION: 1. Status post recent L3-L4 discectomy with interbody spacer placement, posterior decompression and bilateral pedicle screw fusion. Endplate edema and enhancement centered at the L3-L4 level. This finding is nonspecific in the early postoperative setting and may reflect postsurgical change. However, an infectious process with osteomyelitis could appear similar. 2. 2.9 x 1.9 x 1.4 cm left laminectomy bed fluid collection at the L3-L4 level that extends into the left aspect of the canal and the disc space with mild mass effect upon the thecal sac. This is also nonspecific in the early postoperative setting and could reflect a sterile postoperative collection. However, an abscess cannot be excluded by MRI. Additional 4.9 x 1.3 x 1.2 cm deep subc utaneous fluid collection and nonspecific edema and enhancement within the paraspinal musculature of the operative bed. ACT 112: Negative or not required by law. Electronically signed by: Jules Gabriel M.D. 10/24/2019 8:24 PM Dictated: 10/24/191958 Transcribed: 10/24/191958 [facility] Narrative Vital signs stable. Labs show a leukocytosis of 10.92, ESR of 42 and CRP of 1.27. MRI was concerning for possible infectious osteomyelitis versus postsurgical changes. I discussed the patient's symptoms with his surgeon Dr. Sainz and read him the report of the MRI verbatim. Both Dr. Sainz and I agree that the patient should be admitted to the hospital and receive IV antibiotics. Dr. Sainz states he can evaluate the patient in the hospital tomorrow for need for further surgical procedure or antibiotic bead placement. Dr. Sainz is in agreement that the patient should be treated with IV antibiotics, he is in agreement that vancomycin is appropriate in this patient's clinical setting. Dr. Sainz asked the patient to be admitted to the hospital service. [facility] hospitalist Dr. Montague made aware of the patient. Impression & Plan Complication, postoperative infection Discharge Plan Visit Data Chief Complaint: Infection, Wound Stated Complaint: infection, Dr. Refered ED Provider: Jerson Landry Discharge Problem: Complication, postoperative infection Patient Disposition: Being Evaluated by Hospitalist Forms Stand Alone Forms: [facility], Important Visit Information Prescriptions Prescriptions: No Action multivitamin [Daily Multi-Vitamin] tablet 1 tab PO DAILY Qty: 30 RF: 0 amlodipine 10 mg tablet 10 mg PO QAM RF: 0 metoprolol succinate 25 mg tablet extended release 24 hr 25 mg PO QAM RF: 0 tramadol 50 mg tablet 50 mg PO Q6H PRN (Reason: pain, moderate) Qty: 20 RF: 0 oxycodone 5 mg tablet 5 mg PO Q6H PRN (Reason: pain, severe) Qty: 20 RF: 0 Referrals Referrals: Carlos Hendrickson MD [Primary Care Provider] - Discharge Problem: Complication, postoperative infection Qualifiers: Encounter type: initial encounter Postoperative infection type: unspecified ty pe Qualified Code(s): T81.40XA - Infection following a procedure, unspecified, initial encounter
[2019-10-24 19:02] LABS: Basophils # (auto) 0.09 K/uL (0-0.2); Basophils % (auto) 0.8 %; Eosinophils # (auto) 0.49 K/uL (0-0.5); Eosinophils % (auto) 4.5 %; Hematocrit (blood only) 37.6 % (42-52); Hemoglobin 13.2 g/dL (14.0-18.0); Immature Granulocytes # (auto) 0.05 K/uL (0.00-0.02); Immature Granulocytes % (auto) 0.5 %; Lymphocytes # (auto) 2.74 K/uL (1.2-3.4); Lymphocytes % (auto) 25.1 %; Mean Corpuscular Hemoglobin 31.7 pg (25-34); Mean Corpuscular Hgb Conc 35.1 g/dL (32-36); Mean Corpuscular Volume 90.2 fL (80-100); Mean Platelet Volume 9.5 fL (7.4-10.4); Monocytes # (auto) 0.86 K/uL (0.11-0.59); Monocytes % (auto) 7.9 %; Neutrophils # (auto) 6.69 K/uL (1.4-6.5); Neutrophils % (auto) 61.2 %; Platelet Count 341 K/uL (130-400); RDW Coefficient of Variation 12.8 % (11.5-14.5); RDW Standard Deviation 41.3 fL (36.4-46.3); Red Blood Count 4.17 M/uL (4.7-6.1); White Blood Count 10.92 K/uL (4.8-10.8)
[2019-10-24 19:34] LABS: BUN Creatinine Ratio 12.5 (10-20); C Reactive Protein 1.27 mg/dl (0-0.29); Calcium 8.9 mg/dl (8.5-10.1); Creatinine Clr Calc Pharmacy 80.5 ml/min; Est GFR (African American) 86.6; Est GFR (Non-African American) 74.7
[2019-10-24] MEDS ORDERED: GADOBUTROL 30ML VIAL IV PRN (19:53)
--- NOTE | 2019-10-24 20:26 | Magnetic Resonance Report ---
MRI OF THE LUMBAR SPINE WITH AND WITHOUT CONTRAST CLINICAL HISTORY: Evaluate for postoperative abscess. COMPARISON STUDY: Lumbar spine fluoroscopic images October 03, 2019. TECHNIQUE: Utilizing a 1.5 Amberly magnet and dedicated coil, multiplanar, [facility] before and after uneventful IV administration of 9.5 mL of Gadavist. FINDINGS: For purposes of numbering on this exam, the L5-S1 disc space is assigned to axial image 28 of 30. A p revious L4-L5 discectomy is noted. A left L5 pedicle screw remains in place. A recent L3-L4 discectom y, posterior decompression and bilateral pedicle screw fusion is noted. There is increased T2 signal and decreased T1 signal along the inferior endplate of L3 and superior endplate of L4. Interbody spac er is present. Note is made of a rim-enhancing left laminectomy bed fluid collection that extends int o the left aspect of the canal and toward the interbody spacer at the L3-L4 level that measures 2.9 x 1.9 x 1.4 cm. This has mild mass effect upon the left posterolateral aspect of the thecal sac. An ad ditional fluid collection within the deep subcutaneous tissues within the operative bed measures 4.9 x 1.3 x 1.2 cm. This also demonstrates peripheral enhancement. Note is made of edema and enhancement within the paraspinal musculature within the operative bed. The conus terminates at the L1 level. Sev eral mildly enhancing nerve roots are noted within the lumbar spine. No additional fluid collections are noted. There are several Schmorl's nodes within the lower thoracic and lumbar spine. No lumbar sp ine fracture is present. IMPRESSION: 1. Status post recent L3-L4 discectomy with interbody spacer placement, posterior decompression and b ilateral pedicle screw fusion. Endplate edema and enhancement centered at the L3-L4 level. This findi ng is nonspecific in the early postoperative setting and may reflect postsurgical change. However, an infectious process with osteomyelitis could appear similar. 2. 2.9 x 1.9 x 1.4 cm left laminectomy bed fluid collection at the L3-L4 level that extends into the left aspect of the canal and the disc space with mild mass effect upon the thecal sac. This is also n onspecific in the early postoperative setting and could reflect a sterile postoperative collection. H owever, an abscess cannot be excluded by MRI. Additional 4.9 x 1.3 x 1.2 cm deep subcutaneous fluid c ollection and nonspecific edema and enhancement within the paraspinal musculature of the operative be d. ACT 112: Negative or not required by law. Electronically signed by: Jules Gabriel M.D. 10/24/2019 8:24 PM
[2019-10-24] MEDS ORDERED: VANCOMYCIN CONSULT ACTIVE PRN ×2 (20:37→21:28)
[2019-10-24] MEDS ORDERED: VANCOMYCIN HCL 2,000 MG in SODIUM CHLORIDE 0.9% 500 ML IV ONE (20:37)
[2019-10-24] MEDS ORDERED: TRAMADOL HCL 50 MG TABLET PO PRN (22:38)
[2019-10-24] MEDS ORDERED: ONDANSETRON INJ 2 MG/ML 2 ML VIAL IV PRN (22:38)
[2019-10-24] MEDS ORDERED: POLYETHYLENE (MIRALAX) 17 GM PACK PO PRN (22:38)
[2019-10-24] MEDS ORDERED: ALUMINUM/MAGNESIUM SUSP 30 ML UDC PO PRN (22:38)
[2019-10-24] MEDS ORDERED: ACETAMINOPHEN 325 MG TAB PO PRN (22:38)
--- NOTE | 2019-10-24 23:00 | History & Physical Report ---
Date of Service October 24, 2019 Assessment & Plan (1) Complication, postoperative infection: Ar Fuchs is a 59 year old man who is 3 weeks post op from a L3,4 spinal decompression and fusion who presents with a new purulent exudate from wound. Post Op infection MRI showing possible osteomyelitis and abscess vs sterile fluid collection/post op changes Given timeline and purulent discharge concerned for osteomyelitis in this patient with spinal hardware in place will likely need repeat surgery pending evaluation by Dr. Emeli Sainz will evaluate patient in am Received vancomyin in ED will start cefepime as well May need Picc Line moving forward for alf IV antibiotics Patient hemodynamically stable and no systemic symptoms, will continue to monitor Will make patient NPO at midnight for any possible procedure HTN Continuing patients home amlodipine and metoprolol Pain Patient tells me he has not been requiring his pain meds but did list his home tramadol as a prn DVT PPx: SCD's F/E/N: NPO at midnight for any possible procedure Dispo: Admit to med surg pending ortho review for possible surgery, may need picc line prior to discharge Full code (2) Benign essential hypertension: (3) Bladder tumor: (4) Right kidney mass: Admission and Anticipated Discharge Date Admission Date: October 24, 2019 History of Present Illness Chief Complaint: Ar Fuchs is a 59 year old man with a pmh significant for chronic back pain, renal cell carcinoma, and a bladder tumor is here for a post op infection of his L3-4 decompression and fusion performed by Dr. Sainz three weeks ago. He felt surgery went very well, he was almost immediately pain free and his numbness he'd been experiencing went away immediately following the procedure. About three days ago he noticed serosanguinous discharge from his incision. This then became progressively more purulent. He called in to Dr. Sainz's office and they prescribed him some keflex, the discharge became more purulent "mayonnaise like" he tells me and much more voluminous today. He called back to dr Sainz's office and was instructed to come in to emergency department. On presentation to the ED He was feeling well and denies any fevers, chills, sweats, or increased pain in the area. His vital signs are WNL other than some HTN. Labwork significant for an eleavted white count of 10.92, CRP of 1.27. Lumbar spine MRI showing Status post recent L3-L4 discectomy with interbody spacer placement, posterior decompression and bilateral pedicle screw fusion. Endplate edema and enhancement centered at the L3-L4 level. This finding is nonspecific in the early postoperative setting and may reflect postsurgical change. However, an infectious process with osteomyelitis could appear similar. 2. 2.9 x 1.9 x 1.4 cm left laminectomy bed fluid collection at the L3-L4 level that extends into the left aspect of the canal and the disc space with mild mass effect upon the thecal sac. This is also nonspecific in the early postoperative setting and could reflect a sterile postoperative collection. However, an abscess cannot be excluded by MRI. Additional 4.9 x 1.3 x 1.2 cm deep subcutaneous fluid collection and nonspecific edema and enhancement within the paraspinal musculature of the operative bed. In ED was given 2 g of vanc and Dr. Sainz was informed. Dr. sainz will see patient in morning. Primary Care Provider: Carlos Hendrickson MD Allergies Allergy/AdvReac Type Severity Reaction Status Date / Time cyclobenzaprine Allergy Unknown PT NOT SURE Verified 10/24/19 20:10 apple Allergy Swelling Verified 10/24/19 20:10 of Lip/Tongue/Throat branch Allergy Swelling Verified 10/24/19 20:10 of the Eye plum Allergy Swelling Verified 10/24/19 20:10 of Lip/Tongue/Throat walnut Allergy Swelling Verified 10/24/19 20:10 of Lip/Tongue/Throat pravastatin [From Pravachol] AdvReac Unknown MUSCLE Verified 10/24/19 20:10 SORENESS NASAL SPRAY Allergy Unknown Rash Uncoded 10/24/19 20:10 Home Medications Home Medications Medication Instructions Recorded Confirmed Type multivitamin 1 tab PO DAILY #30 tab 12/23/18 10/24/19 Rx amlodipine 10 mg PO QAM 09/08/19 10/24/19 History metoprolol succinate 25 mg PO QAM 09/08/19 10/24/19 History oxycodone 5 mg PO Q6H PRN #20 tab 10/04/19 10/24/19 Rx tramadol 50 mg PO Q6H PRN #20 tab 10/04/19 10/24/19 Rx Past Med/Surg History Medical History Chronic back pain Elevated hemoglobin A1c 6.5% 06/2019 -- PCP monitoring. Lifestyle modifications for now. History of bladder cancer DX OCTOBER 2018, s/p TURBT 12/17/18 History of kidney cancer DX OCTOBER 2018, s/p partial nephrectomy. Hypertension Scar tissue URETHRA Surgical History History of colonoscopy History of cystoscopy MULTIPLE History of kidney surgery R, REMOVAL OF TUMOR - KIDNEY REMAINS History of lumbar fusion History of repair of left rotator cuff History of repair of right rotator cuff History of tonsillectomy and adenoidectomy Hx of transurethral destruction of bladder lesion 12/17/18 TURBT Family History Mother Brain tumor Brother Skin cancer Social History Preferred Language: German Communication Ability: Effective Visual Impairment: No Limitations Hearing Ability: Normal [employer] Required: No Beliefs That Will Affect Care: None marital status: Current Living Situation: Spouse current occupational status: employed 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 Other Information That Helps Us Care for You: No Feels Safe at Home: Yes Safety Concerns: Feels Safe At This Time Smoking Status: Never smoker Tobacco Type: smokeless tobacco ; Second Hand Exposure: No ; Hx Alcohol Use: Yes Alcohol type: beer and wine Alcohol Intake Frequency: Rarely Hx Substance Use: No Childhood Exposure to Second-Hand Smoke: Yes Dental Care, Regularly: Yes Physical Activity Frequency: Does not Exercise Physical Activity Frequency Comment: unable to due to health conditions Seatbelt Use: always Review of Systems Constitutional: no fever, no chills, no fatigue and no weakness Eyes: no problem reported Ear, Nose, Mouth, Throat: no problem reported Respiratory: no cough, no chest congestion and no dyspnea Cardiovascular: no chest pain, no dyspnea, no palpitations, no syncope and no edema Gastrointestinal: no abdominal pain, no nausea, no vomiting and no constipation Genitourinary: no dysuria, no difficulty urinating and no urinary incontinence Neurologic: no gait abnormality, no unsteadiness, no falls, no localized weakness, no paralysis, no loss of sensation, no numbness, no paresthesia and no radiating pain Physical Exam Constitutional: WD/WN, vitals as above well developed and well nourished; no acute distress Eyes: PERRL, conjunctivae normal, anicteric sclerae ENMT: external ear and nose normal, oropharynx normal Respiratory: normal respiratory effort, lungs clear to auscultation Cardiovascular: RRR, no murmur, no edema Gastrointestinal (Abdomen): normal bowel sounds, soft, nontender, no hepatosplenomegaly Skin: Incision over lumbar spine, bandage showing purulent blood tinged exudate collecting on bandage. Not actively bleeding, no fluctuant mass palpated, no tenderness to palpation compared to surrounding area. Results & Data Results & Data ([facility]) Vital Signs (Past 12 Hours) Vital Signs Temp Pulse Pulse Resp BP BP Pulse Ox 10/24/19 22:09 97 10/24/19 21:00 78 155/90 H 97 10/24/19 17:48 36.8 C 97 H 19 161/87 H 92 Code Status & VTE Plan VTE Prophylaxis Plan VTE Prophylaxis will be ordered: Yes Supervising Physician Co-Signing Physician Notes Attending addendum: I have physically seen this patient, have supervised the medical residents activities, and agree with the H&P unless as otherwise noted. Assessment and Plan: Possible postop osteomyelitis/abscess following L3-4 spinal decompression and fusion during admission from 09/30-10/04- Empiric treatment with vancomycin IV and cefepime IV. Consult orthopedic spine surgery Dr. Sainz. N.p.o. after midnight except essential medications. IV fluids Follow purulently draining wound culture and sensitivity. Hypertension- Continue amlodipine and metoprolol with hold parameters. Remaining orders and notations as noted. Resident Activity Tracking Resident Involvement: Resident Care Provided Care Provided: Adult Hospital Medicine (1) Complication, postoperative infection Encounter type: initial encounter Postoperative infection type: unspecified type Qualified Code(s): T81.40XA - Infection following a procedure, unspecified, initial encounter
[2019-10-25] MEDS: CEFEPIME 2,000 MG in SYRINGE 7.5 ML IV SCH ×3 (00:15→23:30)
[2019-10-25] MEDS: SODIUM CHLORIDE 0.9% 1000ML 1,000 ML IV SCH ×3 (00:15→18:02)
[2019-10-25] MEDS: VANCOMYCIN HCL 1,000 MG in SODIUM CHLORIDE 0.9% 250 ML IV SCH ×3 (05:28→21:48)
[2019-10-25] MEDS: MULTIVITAMIN TAB PO SCH (08:40)
[2019-10-25] MEDS: AMLODIPINE BESYLATE 5 MG TAB PO SCH (08:40)
[2019-10-25] MEDS: METOPROLOL SUCC 25MG EXT REL TAB PO SCH (08:40)
--- NOTE | 2019-10-25 08:47 | Orthopedic Consultation ---
Date of Consultation October 25, 2019 Assessment & Plan (1) Complication, postoperative infection: MRI lumbar spine available for review does demonstrate a collection of fluid in the epidural space. This would be consistent with normal postoperative change. There is however a fluid collection subcutaneously. I strongly suspect this is the source of his drainage. We will make him n.p.o. after midnight plan for I&D of his lumbar spine tomorrow morning if possible. Patient stands agrees. Present on Admission?: Yes History of Present Illness Reason for Consultation: Drainage from his lumbar incision Attending Physician: Ari Salazar, DO History of Present Illness This is a 59-year-old male status post lumbar decompression fusion that presents with some drainage from his lumbar incision. He approximately 3 weeks status post lumbar decompression fusion. At this time he denies any fevers chills. He denies any significant back pain denies any leg pain. He had actually returned to work. He has been on a course of oral antibiotics but increased drainage brought him to the emergency room and he was subsequently admitted and now on IV antibiotics. Allergies Allergy/AdvReac Type Severity Reaction Status Date / Time cyclobenzaprine Allergy Unknown PT NOT SURE Verified 10/24/19 20:10 apple Allergy Swelling Verified 10/24/19 20:10 of Lip/Tongue/Throat branch Allergy Swelling Verified 10/24/19 20:10 of the Eye plum Allergy Swelling Verified 10/24/19 20:10 of Lip/Tongue/Throat walnut Allergy Swelling Verified 10/24/19 20:10 of Lip/Tongue/Throat pravastatin [From Pravachol] AdvReac Unknown MUSCLE Verified 10/24/19 20:10 SORENESS NASAL SPRAY Allergy Unknown Rash Uncoded 10/24/19 20:10 Home Medications Home Medications Medication Instructions Recorded Confirmed Type multivitamin 1 tab PO DAILY #30 tab 12/23/18 10/24/19 Rx amlodipine 10 mg PO QAM 09/08/19 10/24/19 History metoprolol succinate 25 mg PO QAM 09/08/19 10/24/19 History oxycodone 5 mg PO Q6H PRN #20 tab 10/04/19 10/24/19 Rx tramadol 50 mg PO Q6H PRN #20 tab 10/04/19 10/24/19 Rx Patient History Medical History Chronic back pain Elevated hemoglobin A1c 6.5% 06/2019 -- PCP monitoring. Lifestyle modifications for now. History of bladder cancer DX OCTOBER 2018, s/p TURBT 12/17/18 History of kidney cancer DX OCTOBER 2018, s/p partial nephrectomy. Hypertension Scar tissue URETHRA Surgical History History of colonoscopy History of cystoscopy MULTIPLE History of kidney surgery R, REMOVAL OF TUMOR - KIDNEY REMAINS History of lumbar fusion History of repair of left rotator cuff History of repair of right rotator cuff History of tonsillectomy and adenoidectomy Hx of transurethral destruction of bladder lesion 12/17/18 TURBT Family History Mother Brain tumor Brother Skin cancer Social History Preferred Language: Portuguese Communication Ability: Effective Visual Impairment: No Limitations Hearing Ability: Normal Cna Gna Required: No Beliefs That Will Affect Care: None marital status: Current Living Situation: Spouse current occupational status: employed 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 Is able to stand and ambulate without difficulty. He is excellent strength testing. Incision does demonstrate evidence of modest erythema there is no purulent drainage at this morning. There is appreciable swelling. Results & Data ([facility]) Vital Signs (Past 12 Hours) Vital Signs Temp Pulse Pulse Resp BP Pulse Ox 10/25/19 07:24 36.9 C 83 16 146/79 H 97 10/25/19 05:34 73 133/80 10/24/19 22:35 36.6 C 82 16 161/90 H 97 10/24/19 22:09 97 10/24/19 21:00 78 155/90 H 97 (1) Complication, postoperative infection Encounter type: initial encounter Postoperative infection type: unspecified type Qualified Code(s): T81.40XA - Infection following a procedure, unspecified, initial encounter
--- NOTE | 2019-10-25 10:27 | Pharmacy Report ---
Pharmacy Abx Initial Consult - Date of Service October 25, 2019 - Pharmacy Dosing Scope Date of Consult: 10/24/2019 Consultation requested by: Dr. Jeff Pharmacy is consulted to initiate Vancomycin IV dosing therapy, order appropriate labs and adjust drug dose/frequency. - Subjective The patient is a 59 year old M admitted on 10/24/19 21:46. - Objective Height: 5 ft 6 in Weight: 94.2 kg Vital Signs (Past 12hrs): Vital Signs Temp Pulse Pulse Resp BP Pulse Ox 10/25/19 07:24 36.9 C 83 16 146/79 H 97 10/25/19 05:34 73 133/80 10/24/19 22:35 36.6 C 82 16 161/90 H 97 Lab Results (24hrs): Laboratory Tests (24 Hours) 10/24/19 10/24/19 10/24/19 18:45 18:45 18:45 WBC 10.92 H Neut # (Auto) 6.69 H ESR 42 H Creatinine 1.08 Est Cr Clr Drug Dosing 80.5 C-Reactive Protein 1.27 H - Risk Factors for Resistance * Hospitalization for 48 hours or more within the past 90 days * 10/03/19 - 10/05/19 x L3-4 decompression and fusion * Antimicrobial use within the last 90 days * Ancef pre- & post-op * Keflex - Assessment & Plan Assessment 59 year old M admitted secondary to possible bone & joint infection * Patient underwent L3-L4 decompression and fusion three weeks ago at [facility] * Presents with purulent "mayonnaise-like" discharge from surgical site; denies fever/chills * Lumbar MRI shows edema and fluid-collection representing post-operative changes vs OM/abscess * Dr. Sainz planning for I&D tomorrow * No cultures; WBCs 10.9K, Afebrile, SCr at baseline * Started on Vancomycin + Cefepime. Pharmacy not consulted on cefepime. Plan IV Vancomycin + Cefepime for treatment of possible spinal abscess Vancomycin IV * Patient meets criteria for vancomycin AUC dosing nomogram * AUC/CHIRAG is the preferred PK/PD target for vancomycin * Target AUC/CHIRAG = 400-600 * AUC guided dosing is effective and associated with decreased risk of nephrotoxicity * AUC/CHIRAG will be monitored via trough level prior to steady state Cefepime * 2 gm IV every 12 hours - appropriate per renal function and indication Pharmacy will continue to follow and will adjust dose/frequency as necessary. Thank you.
[2019-10-25 10:51] LABS: Creatinine Clr Calc Pharmacy 78.4 ml/min; Est GFR (African American) 85.7; Est GFR (Non-African American) 73.9
--- NOTE | 2019-10-25 15:32 | Hospitalist Progress Note ---
Date of Service October 25, 2019 Assessment & Plan (1) Complication, postoperative infection: continue on broad spectrum antibiotics WBC down to 10k from 17k no blood cultures done plan for I&D tomorrow by Dr. Sainz, anticipate cultures being done at that time may be too late to get accurate cultures (2) Chronic back pain: pain much better since spine operation three weeks ago ambulating independently in the halls (3) Pre-diabetes: diet control (4) Obesity: recommend weight loss (5) Hyperlipidemia: diet controlled (6) Benign essential hypertension: BP stable continue Norvasc and metoprolol Admission and Anticipated Discharge Date Admission Date: October 24, 2019 Subjective patient feeling well, no fever, no pain, he is ambulating in the halls appreciate Dr. Sainz consultation, plan for I&D tomorrow WBC down to 10k from 17k no blood cultures done in the ED, no wound culture done would anticipate cultures done by Dr. Sainz tomorrow Review of Systems Review of Systems: All systems reviewed & are unremarkable except as noted in HPI & below Constitutional: no fever, no chills and no sweats Respiratory: no cough Cardiovascular: no chest pain Gastrointestinal: no abdominal pain, no nausea, no vomiting, no constipation and no diarrhea/loose stools Musculoskeletal: + back pain Physical Exam Constitutional: WD/WN, vitals as above Eyes: PERRL, conjunctivae normal, anicteric sclerae ENMT: external ear and nose normal, oropharynx normal Neck: trachea midline, no thyromegaly Respiratory: normal respiratory effort, lungs clear to auscultation Cardiovascular: RRR, no murmur, no edema Gastrointestinal (Abdomen): normal bowel sounds, soft, nontender, no hepatosplenomegaly Musculoskeletal: Head/Neck/Chest: normocephalic and head atraumatic Spine: + limited thoraco-lumbar ROM Skin: + scar (midline back incision, open, draining) Neurologic: patellar DTR's 2+ bilat, sensation intact and PERRL, EOMI, accommodation nl, no face palsy, no dysarthria Psychiatric: A+Ox3, euthymic affect Lymphatic: no cervical or axillary lymphadenopathy Results & Data Results & Data ([facility]) Vital Signs (Past 12 Hours) Vital Signs Temp Pulse Pulse Resp BP Pulse Ox 10/25/19 15:18 36.6 C 71 16 124/77 98 10/25/19 07:24 36.9 C 83 16 146/79 H 97 10/25/19 05:34 73 133/80 Laboratory Results Laboratory Results - last 24 hr 10/24/19 10/24/19 10/24/19 18:45 18:45 18:45 WBC 10.92 H RBC 4.17 L Hgb 13.2 L Hct 37.6 L MCV 90.2 MCH 31.7 MCHC 35.1 RDW Std Deviation 41.3 RDW Coeff of Kalin 12.8 Plt Count 341 MPV 9.5 Immature Gran % (Auto) 0.5 Neut % (Auto) 61.2 Lymph % (Auto) 25.1 [place] % (Auto) 7.9 Eos % (Auto) 4.5 Baso % (Auto) 0.8 Immature Gran # (Auto) 0.05 H Neut # (Auto) 6.69 H Lymph # (Auto) 2.74 [place] # (Auto) 0.86 H Eos # (Auto) 0.49 Baso # (Auto) 0.09 ESR 42 H Sodium 135 L Potassium Chloride 104 Carbon Dioxide 24 Anion Gap 6.0 BUN 14 Creatinine 1.08 Est Cr Clr Drug Dosing 80.5 Est GFR ( Amer) 86.6 Est GFR (Non-Af Amer) 74.7 BUN/Creatinine Ratio 12.5 Glucose 94 Lactate Calcium 8.9 C-Reactive Protein 1.27 H 10/24/19 10/25/19 18:45 10:21 WBC RBC Hgb Hct MCV MCH MCHC RDW Std Deviation RDW Coeff of Kalin Plt Count MPV Immature Gran % (Auto) Neut % (Auto) Lymph % (Auto) [place] % (Auto) Eos % (Auto) Baso % (Auto) Immature Gran # (Auto) Neut # (Auto) Lymph # (Auto) [place] # (Auto) Eos # (Auto) Baso # (Auto) ESR Sodium Potassium Chloride Carbon Dioxide Anion Gap BUN Creatinine 1.09 Est Cr Clr Drug Dosing 78.4 Est GFR ( Amer) 85.7 Est GFR (Non-Af Amer) 73.9 BUN/Creatinine Ratio Glucose Lactate 0.9 Calcium C-Reactive Protein Medications Administered Current Inpatient Medications Acetaminophen (Tylenol) 650 mg PO Q4H PRN PRN Reason: pain/fever Stop: 11/23/19 22:37 Al Hydrox/Mg Hydrox/Simethicone (Maalox) 30 ml PO Q6H PRN PRN Reason: Dyspepsia Stop: 11/23/19 22:37 Amlodipine Bes[facility] ([facility]) [facility] Stop: 11/24/19 08:59 Last Admin: 10/25/19 08:40 Dose: 10 mg Documented by: Cefepime HCl 2,000 mg/ Syringe 20 mls @ 5.5 mls/min IV Q12H [facility]; Protocol Stop: 12/06/19 00:00 Last Admin: 10/25/19 12:05 Dose: 5.5 mls/min Documented by: Sodium Chloride (Nss 1000ml) 1,000 mls @ 80 mls/hr IV .[id number] [facility] Stop: 11/23/19 23:44 Last Infusion: 10/25/19 14:01 Dose: 0 mls/hr Documented by: Vancomycin HCl 1,000 mg/ (Sodium Chloride) 270 mls @ 125 mls/hr IV Q8H [facility] Stop: 12/06/19 04:59 Last Admin: 10/25/19 14:01 Dose: 125 mls/hr Documented by: Metoprolol Succinate (Toprol Xl) 25 mg PO [facility] Stop: 11/24/19 08:59 Last Admin: 10/25/19 08:40 Dose: 25 mg Documented by: Miscellaneous Information (Consult) 1 ea N/A UD PRN PRN Reason: Consult Stop: 11/23/19 21:27 Multivitamins (Multivitamin Tab) 1 tab PO DAILY [facility] Stop: 11/24/19 08:59 Last Admin: 10/25/19 08:40 Dose: 1 tab Documented by: Ondansetron HCl (Zofran) 4 mg IV Q6H PRN PRN Reason: Nausea Stop: 11/23/19 22:37 Polyethylene Glycol (Miralax Powder Packet) 17 gm PO DAILY PRN PRN Reason: Constipation Stop: 11/23/19 22:37 Tramadol HCl (Ultram) 50 mg PO Q6H PRN PRN Reason: pain, moderate Stop: 11/23/19 22:37 PG Care Time/CCT Total # of Minutes Spent Total Time Spent with Patient: Total time spent is greater than 50% in coordination of care (as documented) at patient's floor/unit and/or counseling patient: Coding Level of Care Code 24838 Subseq Hosp Care Lvl 2 Diagnoses Complication, postoperative infection T81.40XA Encounter type: initial encounter Postoperative infection type: unspecified type Chronic back pain M54.9; G89.29 Pre-diabetes R73.03 Obesity E66.9 Hyperlipidemia E78.5 Benign essential hypertension I10 (1) Complication, postoperative infection Encounter type: initial encounter Postoperative infection type: unspecified type Qualified Code(s): T81.40XA - Infection following a procedure, unspecified, initial encounter
--- NOTE | 2019-10-25 16:41 | Anesthesiology Consultation ---
Date of Service October 25, 2019 Assessment & Plan (1) Encounter for pre-operative examination: Chart Review Chart Review: Acceptable Risk for Surgery and Patient NOT seen in Pre Admission Testing Consults Requested none History Surgery Operation Date: 10/26/19 07:30 Proposed Procedures p Incision and Drainage Lumbar Spine - Latrell Sainz DO Height/Weight Height: 5 ft 6 in Weight: 94.2 kg Allergies Allergy/AdvReac Type Severity Reaction Status Date / Time cyclobenzaprine Allergy Unknown PT NOT SURE Verified 10/24/19 20:10 apple Allergy Swelling Verified 10/24/19 20:10 of Lip/Tongue/Throat branch Allergy Swelling Verified 10/24/19 20:10 of the Eye plum Allergy Swelling Verified 10/24/19 20:10 of Lip/Tongue/Throat walnut Allergy Swelling Verified 10/24/19 20:10 of Lip/Tongue/Throat pravastatin [From Pravachol] AdvReac Unknown MUSCLE Verified 10/24/19 20:10 SORENESS NASAL SPRAY Allergy Unknown Rash Uncoded 10/24/19 20:10 Medications Home Medications Medication Instructions Recorded Confirmed Last Taken multivitamin 1 tab PO DAILY #30 tab 12/23/18 10/24/19 10/02/19 05:00 amlodipine 10 mg PO QAM 09/08/19 10/24/19 10/03/19 03:30 metoprolol succinate 25 mg PO QAM 09/08/19 10/24/19 10/03/19 03:30 oxycodone 5 mg PO Q6H PRN #20 tab 10/04/19 10/24/19 Unknown tramadol 50 mg PO Q6H PRN #20 tab 10/04/19 10/24/19 Unknown Active Medications Generic Name Dose Route Start Last Admin Trade Name Freq PRN Reason Stop Dose Admin Amlodipine Besylate 10 mg 10/25/19 09:00 10/25/19 08:40 Norvasc PO 11/24/19 08:59 10 mg QAM PEDRO LUIS Administration Cefepime HCl 2,000 mg/ Syringe 20 mls @ 5.5 mls/min 10/25/19 00:00 10/25/19 12:05 IV 12/06/19 00:00 5.5 mls/min Q12H PEDRO LUIS Administration Protocol Sodium Chloride 1,000 mls @ 80 mls/hr 10/24/19 23:45 10/25/19 16:15 Nss 1000ml IV 11/23/19 23:44 80 mls/hr .[id number] PEDRO LUIS Infusion Vancomycin HCl 1,000 mg/ 270 mls @ 125 mls/hr 10/25/19 05:00 10/25/19 16:15 Sodium Chloride IV 12/06/19 04:59 Infused Q8H PEDRO LUIS Infusion Metoprolol Succinate 25 mg 10/25/19 09:00 10/25/19 08:40 Toprol Xl PO 11/24/19 08:59 25 mg QAM PEDRO LUIS Administration Multivitamins 1 tab 10/25/19 09:00 10/25/19 08:40 Multivitamin Tab PO 11/24/19 08:59 1 tab DAILY PEDRO LUIS Administration Past Medical History Medical History Chronic back pain Elevated hemoglobin A1c 6.5% 06/2019 -- PCP monitoring. Lifestyle modifications for now. History of bladder cancer DX OCTOBER 2018, s/p TURBT 12/17/18 History of kidney cancer DX OCTOBER 2018, s/p partial nephrectomy. Hypertension Scar tissue URETHRA Exercise / Class Metabolic Activity II 4-5 Yardwork/Stairs/Walk up hill Past Family History Family History Mother Brain tumor Brother Skin cancer Past Surgical History Surgical History History of colonoscopy History of cystoscopy MULTIPLE History of kidney surgery R, REMOVAL OF TUMOR - KIDNEY REMAINS History of lumbar fusion History of repair of left rotator cuff History of repair of right rotator cuff History of tonsillectomy and adenoidectomy Hx of transurethral destruction of bladder lesion 12/17/18 TURBT Past Anesthesia History No Hx of Anesthesia Complications and No Family Hx of Anesthesia Complications History of PONV No Hx of PONV and No Hx of Motion Sickness Social History Smoking Status: Never smoker tobacco type: smokeless tobacco Hx Alcohol Use: Yes Alcohol type: beer and wine alcohol intake frequency: other Alcohol Intake Frequency Comment: occasionally Hx Substance Use: No substance use type: does not use Physical Exam Vital Signs Last Vital Signs Temp 36.6 C 10/25/19 15:18 Pulse 71 10/25/19 15:18 Resp 16 10/25/19 15:18 BP 124/77 10/25/19 15:18 Pulse Ox 98 10/25/19 15:18 Testing Laboratory Results 10/24/19 18:45 10/25/19 10:21 Other Testing Electrocardiogram Date: 09/18/19 Findings: + NSR @ (84bpm) No significant change from 2010 EKG.
[2019-10-25] MEDS ORDERED: VANCOMYCIN HCL 1,500 MG in SODIUM CHLORIDE 0.9% 500 ML IV SCH (21:30)
--- NOTE | 2019-10-26 03:58 | Billing Data ---
Date of Service October 26, 2019 Coding Level of Care Code 91719 Initial Inpt Care Lvl 3
[2019-10-26] MEDS ORDERED: VANCOMYCIN TROUGH ONE (05:30)
[2019-10-26] MEDS: VANCOMYCIN HCL 1,000 MG in SODIUM CHLORIDE 0.9% 250 ML IV SCH (05:47)
[2019-10-26] MEDS: SODIUM CHLORIDE 0.9% 1000ML 1,000 ML IV SCH (06:48)
[2019-10-26] MEDS ORDERED: ROCURONIUM BROMIDE 10 MG/ML 5 ML VIAL ONE (06:55)
[2019-10-26] MEDS ORDERED: BACITRACIN INJ 50,000 UNIT VIAL ONE (07:10)
[2019-10-26] MEDS ORDERED: BUPIVACAINE/EPINEPHRINE 0.5% MPF 1:200,000 10 ML VIAL ONE (07:10)
[2019-10-26] MEDS ORDERED: NEOSTIGMINE METHYLSULFATE 5 MG/5 ML SYR ONE (07:22)
[2019-10-26] MEDS ORDERED: MIDAZOLAM HCL 1 MG/ML 2ML VIAL ONE (07:22)
[2019-10-26] MEDS ORDERED: ONDANSETRON INJ 2 MG/ML 2 ML VIAL ONE (07:22)
[2019-10-26] MEDS ORDERED: PROPOFOL IV EMULSION 10 MG/ML 20 ML VIAL IV ONE (07:22)
[2019-10-26] MEDS ORDERED: LIDOCAINE HCL 2% 2 ML VIAL/AMP(20MG/ML) INFIL ONE (07:22)
[2019-10-26] MEDS ORDERED: GLYCOPYRROLATE 0.2 MG/ML VIAL ONE (07:22)
[2019-10-26] MEDS ORDERED: fentaNYL citrate 100 MCG/2 ML VIAL ONE ×2 (07:22→09:25)
[2019-10-26] MEDS ORDERED: VANCOMYCIN HCL 1000MG/20ML VIAL ONE (08:01)
[2019-10-26] MEDS ORDERED: GENTAMICIN SULFATE 40 MG/ML 2 ML VIAL ONE (08:01)
--- NOTE | 2019-10-26 08:55 | Pharmacy Report ---
Pharmacy Abx Dose Short Note - Date of Service October 26, 2019 - Assessment & Plan Assessment 59 year old M admitted secondary to possible bone & joint infection * Patient underwent L3-L4 decompression and fusion three weeks ago at [facility] * Presents with purulent "mayonnaise-like" discharge from surgical site; denies fever/chills * Lumbar MRI shows edema and fluid-collection representing post-operative changes vs OM/abscess * Dr. Sainz to perform I&D today * No labs from today. Patient remains afebrile. * Day #2 of Vancomycin + Cefepime Plan Vancomycin * Trough level of 21.4 mcg/mL is supratherapeutic * Change to 1500 mg IV every 12 hours - believe patient requires same total daily dose just at an extended dosing interval * Goal trough level: 15 to 20 mcg/mL * Trough level ordered for: 10/27 at 0530 to represent steady state levels Pharmacy will continue to follow and will adjust dose/frequency as necessary. Thank you.
--- NOTE | 2019-10-26 09:11 | Operative Report ---
Post Operative Report Pre & Post Diagnosis Operation Date: 10/26/19 07:30 Pre-Op Diagnosis: Seroma lumbar spine epidural space Post-Op Diagnosis: Seroma lumbar spine epidural space I identified the patient and participated in the time-out.: Yes Procedure Operation Date: 10/26/19 07:30 Actual Procedures I irrigation debridement lumbar spine with placement of 5 cc of stimulan beads impregnated with tobramycin and vancomycin. Surgeon Latrell Sainz, DO Electronic Device Monitor None Estimated Blood Loss 25 Findings See Below Very small amount of serous fluid. No evidence of purulence. Specimens Epidural space cultures Indications This is a 59-year-old male known to me the presents with drainage from his lumbar incision a markedly increased in white blood cell count sed rate and CRP subsequently we move forward with irrigation and debridement lumbar spine. Description of Procedure Patient was met with identified informed consent obtained. Please take patient was then taken the operative suite underwent an patient placed in a prone position Jono table on top Wilfrid frame. All bony prominences well-padded eyes inspected to ensure no external pressure placed upon the. This point the lumbar spine was prepped and draped in the normal sterile fashion. Sharp dissection with the assistance of Bovie cautery was performed down to and exposing the epidural space. I did not identify any evidence of gross purulence. There was a small amount of seroma in the epidural space. It was explored several times. Copious amounts of antibiotic irrigation were then utilized. I placed approximately 5 cc of stimulan beads throughout the incision. They were impregnated with vancomycin and tobramycin. Incision was then closed with subcutaneous Vicryl and eduar for final skin closure. A 15 round CRISTAL drain was also inserted. Sterile dressing was then placed and the patient was wake and taken to PACU stable condition. I attest to the content of the Intraoperative Record and any orders documented therein. Any exceptions are noted below.
[2019-10-26] MEDS ORDERED: ESMOLOL HCL INJ 10 MG/ML 10ML VIAL IV ONE (09:21)
[2019-10-26] MEDS ORDERED: METOCLOPRAMIDE HCL INJ 5 MG/ML 2 ML VIAL IV PRN (10:27)
[2019-10-26] MEDS ORDERED: SOD PHOSPHATE/SOD BIPHOSPHATE ENEMA 132 ML BTL PR PRN (10:27)
[2019-10-26] MEDS ORDERED: PROMETHAZINE HCL 12.5 MG in SODIUM CHLORIDE 0.9% 50 ML IV PRN (10:27)
[2019-10-26] MEDS ORDERED: ONDANSETRON 4 MG OD TAB PO PRN (10:27)
[2019-10-26] MEDS ORDERED: DO NOT ADMINISTER PNEUMOCOCCAL VACCINE PRN (10:27)
[2019-10-26] MEDS ORDERED: FAMOTIDINE 20 MG TAB PO PRN (10:27)
[2019-10-26] MEDS ORDERED: HYDROmorphone INJ 0.5 MG/0.5 ML SYR IV PRN (10:27)
[2019-10-26] MEDS ORDERED: HYDROmorphone INJ 1 MG/ML SYRINGE IV PRN (10:27)
[2019-10-26] MEDS ORDERED: ALUMINUM/MAGNESIUM SUSP 30 ML UDC PO PRN (10:27)
[2019-10-26] MEDS ORDERED: DO NOT ADMINISTER FLU VACCINE PRN (10:27)
[2019-10-26] MEDS ORDERED: ACETAMINOPHEN 1,000 MG/100 ML VIAL IV PRN (10:27)
[2019-10-26] MEDS ORDERED: NALOXONE HCL 0.4 MG/1 ML VIAL/CARP IV PRN (10:27)
[2019-10-26] MEDS ORDERED: LORazepam 0.5 MG TAB PO PRN (10:27)
[2019-10-26] MEDS ORDERED: OXYCODONE HCL IR 5 MG TAB (IMMEDIATE RELEASE) PO PRN (10:27)
[2019-10-26] MEDS ORDERED: TRAMADOL HCL 50 MG TABLET PO PRN (10:27)
[2019-10-26] MEDS ORDERED: LORazepam 0.5 MG/1 ML VIAL IV PRN (10:27)
[2019-10-26] MEDS ORDERED: bisacodyL 10 MG SUPP PR PRN (10:27)
[2019-10-26] MEDS ORDERED: ONDANSETRON INJ 2 MG/ML 2 ML VIAL IV PRN (10:27)
[2019-10-26] MEDS ORDERED: ACETAMINOPHEN 500 MG TAB PO PRN (10:27)
[2019-10-26] MEDS ORDERED: MAGNESIUM HYDROXIDE SUSP 30 ML UDC PO PRN (10:27)
[2019-10-26] MEDS: MULTIVITAMIN TAB PO SCH (10:42)
[2019-10-26] MEDS: METOPROLOL SUCC 25MG EXT REL TAB PO SCH (10:43)
[2019-10-26] MEDS: AMLODIPINE BESYLATE 5 MG TAB PO SCH (10:43)
[2019-10-26] MEDS: LACTATED RINGER'S 1,000 ML IV SCH ×2 (10:50→19:29)
[2019-10-26] MEDS: KETOROLAC 30 MG/ML VIAL IV SCH ×3 (12:06→21:47)
[2019-10-26] MEDS: CEFEPIME 2,000 MG in SYRINGE 7.5 ML IV SCH (12:11)
--- NOTE | 2019-10-26 15:08 | Hospitalist Progress Note ---
Date of Service October 26, 2019 Assessment & Plan (1) Complication, postoperative infection: continue on broad spectrum antibiotics WBC down to 10k from 17k yesterday, repeat CBC tomorrow no blood cultures done incision and drainage of seroma on 10/[address] Sainz, antibiotic beads placed in the incision no complications, EBL 25cc fluid sent for culture, the initial gram stain shows NO WBC and NO organisms discuss timeline for discharge tomorrow with Dr. Sainz patient feels great, ambulating in halls, eating well, no fever (2) Benign essential hypertension: BP stable continue Norvasc and metoprolol Admission and Anticipated Discharge Date Admission Date: October 24, 2019 Subjective incision and drainage of seroma today, fluid sent for culture antibiotic beads placed in wound bed tolerated procedure well no fever/chills, mild lower back pain no chest pain, no dyspnea, no cough, no nausea Review of Systems Review of Systems: All systems reviewed & are unremarkable except as noted in HPI & below Constitutional: no fever Musculoskeletal: + back pain (mild, lower back) Physical Exam Constitutional: WD/WN, vitals as above Eyes: PERRL, conjunctivae normal, anicteric sclerae ENMT: external ear and nose normal, oropharynx normal Neck: trachea midline, no thyromegaly Respiratory: normal respiratory effort, lungs clear to auscultation Cardiovascular: RRR, no murmur, no edema Gastrointestinal (Abdomen): normal bowel sounds, soft, nontender, no hepatosplenomegaly Musculoskeletal: Head/Neck/Chest: normocephalic and head atraumatic Spine: + limited thoraco-lumbar ROM Skin: + incision (midline lumbar surgical incision, dressed) Neurologic: patellar DTR's 2+ bilat, sensation intact and PERRL, EOMI, accommodation nl, no face palsy, no dysarthria Psychiatric: A+Ox3, euthymic affect Lymphatic: no cervical or axillary lymphadenopathy Results & Data Results & Data ([facility]) Vital Signs (Past 12 Hours) Vital Signs Temp Pulse Pulse Resp BP Pulse Ox 10/26/19 13:31 36.5 C 80 18 136/79 97 10/26/19 11:54 36.5 C 72 16 130/79 96 10/26/19 11:28 36.6 C 77 16 142/82 H 94 10/26/19 10:28 36.8 C 81 18 145/86 H 96 10/26/19 10:10 37.0 C 78 16 144/79 H 98 10/26/19 10:00 37.0 C 78 16 148/77 H 98 10/26/19 09:50 90 21 154/90 H 100 10/26/19 09:44 36.4 C L 80 16 138/83 100 10/26/19 06:45 36.7 C 72 22 161/83 H 97 Laboratory Results Laboratory Results - last 24 hr 10/26/19 05:24 Vancomycin Trough 21.2 Microbiology 10/26/19 09:20 Back Gram Stain - Final Medications Administered Current Inpatient Medications Acetaminophen (Tylenol) 1,000 mg PO Q8H PRN PRN Reason: MILD Pain Scale 1,2,3 & Pre PT Stop: 11/25/19 10:26 Al Hydrox/Mg Hydrox/Simethicone (Maalox) 30 ml PO Q6H PRN PRN Reason: Dyspepsia Stop: 11/23/19 22:37 Amlodipine Besylate (Norvasc) 10 mg PO [facility] Stop: 11/24/19 08:59 Last Admin: 10/26/19 10:43 Dose: 10 mg Documented by: Bisacodyl (Dulcolax) 10 mg FL DAILY PRN PRN Reason: Constipation Stop: 11/25/19 10:26 Diphenhydramine HCl (Benadryl Capsule) 25 mg PO Q6H PRN PRN Reason: Allergic Rhinitis/Insomnia Stop: 11/25/19 10:26 Famotidine (Pepcid) 20 mg PO Q12H PRN PRN Reason: Dyspepsia Stop: 11/25/19 10:26 Hydromorphone HCl (Dilaudid) 0.5 mg IV Q3H PRN PRN Reason: MOD pain (scale 4-6) & Pre PT Stop: 11/09/19 10:26 Hydromorphone HCl (Dilaudid) 1 mg IV Q3H PRN PRN Reason: severe pain (scale 7-10) Stop: 11/09/19 10:26 Hydroxyzine HCl (Vistaril) 25 mg PO Q8H PRN PRN Reason: Anxiety Stop: 11/25/19 10:26 Cefepime HCl 2,000 mg/ Syringe 20 mls @ 5.5 mls/min IV Q12H [facility]; Protocol Stop: 12/06/19 00:00 Last Admin: 10/26/19 12:11 Dose: 5.5 mls/min Documented by: Sodium Chloride (Nss 1000ml) 1,000 mls @ 80 mls/hr IV .[id number] [facility] Stop: 11/23/19 23:44 Last Infusion: 10/26/19 10:42 Dose: 80 mls/hr Documented by: Vancomycin HCl 1,500 mg/ (Sodium Chloride) 530 mls @ 200 mls/hr IV Q12H [facility] Stop: 12/07/19 17:59 Lorazepam (Ativan) 0.5 mg in 1 mls @ 0.5 mls/min IV Q8H PRN PRN Reason: Sedation/Anxiety Stop: 11/25/19 10:26 Acetaminophen (Ofirmev) 1,000 mg in 100 mls @ 400 mls/hr IV Q8H PRN PRN Reason: MILD Pain Rating 1,2,3 Stop: 10/27/19 10:26 Promethazine HCl 12.5 mg/ (Sodium Chloride) 50.5 mls @ 204 mls/hr IV Q6H PRN PRN Reason: Nausea &/or Vomiting Stop: 11/25/19 10:26 Lactated Ringer's (Lr) 1,000 mls @ 100 mls/hr IV .Q10H [facility] Stop: 11/25/19 10:26 Last Admin: 10/26/19 10:50 Dose: Not Given Documented by: Influenza Virus Vaccine Quadrival (Flu Vaccine, Do Not Administer) 1 ea N/A PRN PRN PRN Reason: Notification Stop: 11/25/19 10:26 Ketorolac Tromethamine (Toradol) 30 mg IV Q6H [facility] Stop: 10/27/19 05:01 Last Admin: 10/26/19 12:06 Dose: 30 mg Documented by: Lorazepam (Ativan) 0.5 mg PO Q8H PRN PRN Reason: Sedation/Anxiety Stop: 11/25/19 10:26 Magnesium Hydroxide (Milk Of Magnesia) 30 ml PO DAILY PRN PRN Reason: Constipation Stop: 11/25/19 10:26 Metoclopramide HCl (Reglan) 10 mg IV Q6H PRN PRN Reason: Nausea &/or Vomiting Stop: 11/25/19 10:26 Metoprolol Succinate (Toprol Xl) 25 mg PO QAM PEDRO LUIS Stop: 11/24/19 08:59 Last Admin: 10/26/19 10:43 Dose: 25 mg Documented by: Miscellaneous Information (Consult) 1 ea N/A UD PRN PRN Reason: Consult Stop: 11/23/19 21:27 Multivitamins (Multivitamin Tab) 1 tab PO DAILY PEDRO LUIS Stop: 11/24/19 08:59 Last Admin: 10/26/19 10:42 Dose: 1 tab Documented by: Naloxone HCl (Narcan) 0.1 mg IV Q5M PRN; Protocol PRN Reason: Oversedation/Resp Depression Stop: 11/25/19 10:26 Ondansetron HCl (Zofran) 4 mg IV Q6H PRN PRN Reason: Nausea Stop: 11/23/19 22:37 Ondansetron HCl (Zofran Odt) 4 mg PO Q6H PRN PRN Reason: Nausea Stop: 11/25/19 10:26 Oxycodone HCl (Roxicodone Immediate Rel) 5 - 10 mg PO Q4H PRN PRN Reason: Moderate-Severe Pain & Pre PT Stop: 11/09/19 10:26 Pneumococcal Polyvalent Vaccine (Pneumococcal Vacc, Do Not Administer) 1 ea N/A PRN PRN PRN Reason: Notification Stop: 11/25/19 10:26 Polyethylene Glycol (Miralax Powder Packet) 17 gm PO DAILY PRN PRN Reason: Constipation Stop: 11/23/19 22:37 Polyethylene Glycol (Miralax Powder Packet) 17 gm PO Q6 PEDRO LUIS Stop: 11/26/19 05:59 Senna/Docusate Sodium (Senokot S) 2 tab PO HS PEDRO LUIS Stop: 11/25/19 20:59 Sodium Biphosphate/Sodium Phosphate (Fleet Enema) 132 ml FL ONE PRN PRN Reason: Constipation Stop: 11/25/19 10:26 Tramadol HCl (Ultram) 50 - 100 mg PO Q4H PRN PRN Reason: Moderate-Severe Pain & Pre PT Stop: 11/25/19 10:26 PG Care Time/CCT Total # of Minutes Spent Total Time Spent with Patient: Total time spent is greater than 50% in coordination of care (as documented) at patient's floor/unit and/or counseling patient: Coding Level of Care Code 94739 Subseq Hosp Care Lvl 2 Diagnoses Complication, postoperative infection T81.40XA Encounter type: initial encounter Postoperative infection type: unspecified type Benign essential hypertension I10 (1) Complication, postoperative infection Encounter type: initial encounter Postoperative infection type: unspecified type Qualified Code(s): T81.40XA - Infection following a procedure, unspecified, initial encounter
[2019-10-26] MEDS: VANCOMYCIN HCL 1,500 MG in SODIUM CHLORIDE 0.9% 500 ML IV SCH (17:36)
[2019-10-26] MEDS ORDERED: DOCUSATE SODIUM/SENNA 50/8.6MG TAB PO SCH (21:00)
[2019-10-27] MEDS: CEFEPIME 2,000 MG in SYRINGE 7.5 ML IV SCH ×2 (00:22→12:59)
[2019-10-27] MEDS: SODIUM CHLORIDE 0.9% 1000ML 1,000 ML IV SCH (03:13)
[2019-10-27 05:00] LABS: Basophils # (auto) 0.05 K/uL (0-0.2); Basophils % (auto) 0.5 %; Eosinophils # (auto) 0.59 K/uL (0-0.5); Hematocrit (blood only) 37.6 % (42-52); Hemoglobin 12.7 g/dL (14.0-18.0); Immature Granulocytes # (auto) 0.03 K/uL (0.00-0.02); Immature Granulocytes % (auto) 0.3 %; Lymphocytes # (auto) 2.06 K/uL (1.2-3.4); Mean Corpuscular Hgb Conc 33.8 g/dL (32-36); Mean Corpuscular Volume 91.7 fL (80-100); Mean Platelet Volume 9.2 fL (7.4-10.4); Monocytes % (auto) 9.2 %; Platelet Count 294 K/uL (130-400); RDW Coefficient of Variation 12.8 % (11.5-14.5); RDW Standard Deviation 42.8 fL (36.4-46.3); White Blood Count 9.83 K/uL (4.8-10.8)
[2019-10-27 05:24] LABS: Calcium 9.2 mg/dl (8.5-10.1); Creatinine Clr Calc Pharmacy 71.2 ml/min; Est GFR (African American) 76.3; Est GFR (Non-African American) 65.8; Potassium 4.7 mmol/L (3.5-5.1)
[2019-10-27] MEDS: VANCOMYCIN HCL 1,500 MG in SODIUM CHLORIDE 0.9% 500 ML IV SCH (05:41)
[2019-10-27] MEDS: POLYETHYLENE (MIRALAX) 17 GM PACK PO SCH ×2 (05:41→11:46)
[2019-10-27] MEDS: KETOROLAC 30 MG/ML VIAL IV SCH (05:42)
--- NOTE | 2019-10-27 08:09 | Orthopedic Progress Note ---
Date of Service October 27, 2019 Assessment & Plan (1) Complication, postoperative infection: Patient is status post I&D lumbar spine. He seems to be doing quite well. His cultures are pending but no organisms noted on Gram stain. Most likely discharge home today if possible. Admission and Anticipated Discharge Date Admission Date: October 24, 2019 Subjective Back pain controlled. He has no leg pain. He states his been ambulating halls without difficulty. He did have an episode of urinary retention but this is resolved. Physical Exam Physical Exam: Patient is in a chair at bedside has been strength testing. Results & Data ([facility]) Vital Signs (Past 12 Hours) Vital Signs Temp Pulse Pulse Resp BP Pulse Ox 10/27/19 07:27 36.7 C 71 18 149/84 H 97 10/27/19 03:20 36.4 C L 59 L 16 135/76 98 10/26/19 23:08 36.4 C L 56 L 16 122/75 97 (1) Complication, postoperative infection Encounter type: initial encounter Postoperative infection type: unspecified type Qualified Code(s): T81.40XA - Infection following a procedure, unspecified, initial encounter
[2019-10-27] MEDS: AMLODIPINE BESYLATE 5 MG TAB PO SCH (08:43)
[2019-10-27] MEDS: METOPROLOL SUCC 25MG EXT REL TAB PO SCH (08:43)
[2019-10-27] MEDS: MULTIVITAMIN TAB PO SCH (08:43)
--- NOTE | 2019-10-27 11:45 | Discharge Summary ---
Date of Service October 27, 2019 Admission HPI Per Admitting Provider Chief Complaint: Ar Fuchs is a 59 year old man with a pmh significant for chronic back pain, renal cell carcinoma, and a bladder tumor is here for a post op infection of his L3-4 decompression and fusion performed by Dr. Sainz three weeks ago. He felt surgery went very well, he was almost immediately pain free and his numbness he'd been experiencing went away immediately following the procedure. About three days ago he noticed serosanguinous discharge from his incision. This then became progressively more purulent. He called in to Dr. Sainz's office and they prescribed him some keflex, the discharge became more purulent "mayonnaise like" he tells me and much more voluminous today. He called back to dr Sainz's office and was instructed to come in to emergency department. On presentation to the ED He was feeling well and denies any fevers, chills, sweats, or increased pain in the area. His vital signs are WNL other than some HTN. Labwork significant for an eleavted white count of 10.92, CRP of 1.27. Lumbar spine MRI showing Status post recent L3-L4 discectomy with interbody spacer placement, posterior decompression and bilateral pedicle screw fusion. Endplate edema and enhancement centered at the L3-L4 level. This finding is nonspecific in the early postoperative setting and may reflect postsurgical change. However, an infectious process with osteomyelitis could appear similar. 2. 2.9 x 1.9 x 1.4 cm left laminectomy bed fluid collection at the L3-L4 level that extends into the left aspect of the canal and the disc space with mild mass effect upon the thecal sac. This is also nonspecific in the early postoperative setting and could reflect a sterile postoperative collection. However, an abscess cannot be excluded by MRI. Additional 4.9 x 1.3 x 1.2 cm deep subcutaneous fluid collection and nonspecific edema and enhancement within the paraspinal musculature of the operative bed. In ED was given 2 g of vanc and Dr. Sainz was informed. Dr. sainz will see patient in morning. Principal Diagnosis Postoperative wound infection of the lumbar spine Discharge Exam Constitutional WD/WN, vitals as above Eyes + anicteric sclerae ENMT external ear and nose normal, oropharynx normal Neck trachea midline, no thyromegaly Respiratory normal respiratory effort, lungs clear to auscultation Cardiovascular RRR, no murmur, no edema Extremities: no calf tenderness Chest (Breasts) Chest: normal inspection of chest Gastrointestinal (Abdomen) normal bowel sounds, soft, nontender, no hepatosplenomegaly Musculoskeletal Extremities: extremities normal to inspection; no cyanosis and no clubbing Skin Lower back with dressing in place with mild amount of dried drainage CRISTAL drain in place with serosanguineous drainage Neurologic moves all extremities and awake; no focal motor deficits Psychiatric A+Ox3, euthymic affect Lymphatic no lymphedema Discharge Data Allergies Allergy/AdvReac Type Severity Reaction Status Date / Time cyclobenzaprine Allergy Unknown PT NOT SURE Verified 10/24/19 20:10 apple Allergy Swelling Verified 10/24/19 20:10 of Lip/Tongue/Throat branch Allergy Swelling Verified 10/24/19 20:10 of the Eye plum Allergy Swelling Verified 10/24/19 20:10 of Lip/Tongue/Throat walnut Allergy Swelling Verified 10/24/19 20:10 of Lip/Tongue/Throat pravastatin [From Pravachol] AdvReac Unknown MUSCLE Verified 10/24/19 20:10 SORENESS NASAL SPRAY Allergy Unknown Rash Uncoded 10/24/19 20:10 Consultations 10/24/19 20:43 ED Decision to Admit Stat 10/24/19 22:38 Consult Orthopedic Surgery Routine 10/26/19 10:27 Consult Case Management - Discharge Planning Routine Procedures Performed Operation Date: 10/26/19 07:30 Actual Procedures p Incision and Drainage Lumbar Spine - Latrell Sainz, Ordered Studies 10/24/19 18:08 MR lumbar spine wo/w con Stat Hospital Course (1) Complication, postoperative infection: Presented with purulent drainage from previous lumbar spine fusion surgery Took Keflex for a day and a half prior to admission MRI with fluid collection, postoperative changes Sed rate not significantly elevated Not likely to have osteomyelitis Leukocytosis now resolved no blood cultures done incision and drainage of seroma on 10/[address] Sainz, antibiotic beads placed in the incision with vancomycin and tobramycin no complications, EBL 25cc fluid sent for culture, the initial gram stain shows NO WBC and NO organisms- culture still pending at the time of discharge Dr. Sainz does feel that this was just a superficial infection. Okay for oral antibiotics at the time of discharge -Send home with 8 more days of doxycycline and cephalexin Close follow-up with orthopedic surgery with drains to be removed later this week patient feels great, ambulating in halls, eating well, no fever Stable for discharge to home (2) Benign essential hypertension: BP stable continue Norvasc and metoprolol (3) Urinary retention: Patient had to be straight catheterized the night prior to discharge He is now voiding full amounts on his own He has a history of this occurring to him in the past and sees urology frequently for his history of bladder cancer with spread to the kidney -Advised to follow-up with urology as an outpatient if this persists, but seems to be resolved DVT prophylaxis-ambulation, SCDs Disposition-stable for discharged home Total Time Total Time Spent Total Time Spent (In Minutes): 35 minutes Total Time Includes: Examination of the Patient, Discharge Planning, Medication Reconciliation and Communication With Other Providers (Orthopedic spine surgeon- Dr. Sainz) Discharge Plan Discharge Items Patient Disposition: Home - Self-Care Reason For Visit: POST OP INFECTION Discharge Diagnosis: Postoperative wound infection of the lumbar spine Condition on Discharge: Good Activity: Resume your previous activity Bathing: Keep incision dry Bathing Comment: May shower in 2 days Driving/Machine Use: No driving until cleared by Dr. Sainz Non-emergency contact: Primary Care Provider and Surgeon Call non-emergency contact if: you have any medication questions, your symptoms worsen, your pain is not controlled, your pain is worsening, your pain is unusual for you, your pain is concerning for you, you have a fever, your temperature is above 101, your wound has increased redness, your wound has increased drainage and your wound pain has increased Follow-up/Referrals: Carlos Hendrickson MD [Primary Care Provider] - (Please call for follow-up appointment within 2 weeks) Latrell Sainz DO [Surgeon] - (Please follow-up with Dr. Sainz later this week for drain removal.) Diet: Heart Healthy Addtl Attending Provider Instructions: Finish out the course of cephalexin 500 mg by mouth twice daily and doxycycline 100 mg by mouth twice daily for [address] Sainz can follow-up on the final results of the culture taken from your wound and tell you if you can discontinue 1 of the antibiotics. Pending Studies at Discharge: Yes Studies:: Wound culture Stand-Alone Forms: My [facility] Medications and DC Order Prescriptions: New cephalexin 500 mg capsule 500 mg PO BID Qty: 16 RF: 0 doxycycline hyclate 100 mg tablet,delayed release (DR/EC) 100 mg PO BID Qty: 16 RF: 0 Continued multivitamin [Daily Multi-Vitamin] tablet 1 tab PO DAILY Qty: 30 RF: 0 amlodipine 10 mg tablet 10 mg PO QAM RF: 0 metoprolol succinate 25 mg tablet extended release 24 hr 25 mg PO QAM RF: 0 tramadol 50 mg tablet 50 mg PO Q6H PRN (Reason: pain, moderate) Qty: 20 RF: 0 oxycodone 5 mg tablet 5 mg PO Q6H PRN (Reason: pain, severe) Qty: 20 RF: 0 Discharge Orders: Discharge Order (Routine); Ordered 10/27/19 Ordered By: Sydni Moore Admission Data Admit Date/Time: 10/24/19 21:46 Attending Provider: Sydni Moore Admit Provider: Latrell Sainz Primary Care Provider: Carlos Hendrickson Other Providers: Surya Rea ; Latrell Sainz Coding Level of Care Code D/C Day Management >30 mins Diagnoses Complication, postoperative infection T81.40XA Encounter type: initial encounter Postoperative infection type: unspecified type Benign essential hypertension I10 Urinary retention R33.9
[2019-10-28] MEDS ORDERED: VANCOMYCIN TROUGH ONE (05:30)
--- NOTE | 2019-10-28 21:59 | Anesthesiology Progress Note ---
Date of Service October 26, 2019 Anesthesia Post Procedure Pain Intensity Lower Back: Pain Intensity: 2 Transfer of Care Handoff Completed per policy Notes Mental Status: alert / awake / arousable and participated in evaluation Patient Amnestic to Procedure: Yes Nausea / Vomiting: adequately controlled Pain: adequately controlled Airway Patency, RR, SpO2: stable & adequate BP & HR: stable & adequate Hydration State: stable & adequate Anesthetic Complications: no major complications apparent and Pt Satisfied with anesthetic care
== END 2019-10-27 14:47 | disposition home or self-care (01) | DRG 908 ==
LOC: ED 17:45 → 3E 21:46 → SUATTDRO 21:46 → 3E 22:09